=== PATIENT | female | born 1960 | race Caucasian/White ===

== ENCOUNTER → 2017-07-24 | Outpatient (CLI) | payer BC ==
--- NOTE | 2017-07-24 09:22 | US ---
EXAMINATION TYPE: US abdomen complete DATE OF EXAM: 07/24/2017 COMPARISON: CLINICAL HISTORY: K42.9 Umbilical Hernia. Hx of stomach cancer. GB removed in 2002. Bulge seen left lateral to umbilicus. EXAM MEASUREMENTS: Liver Length: 18.9 cm CBD: cm CHD: Spleen: 13.2 cm Right Kidney: 11.5 x 5.4 x 4.5 cm Left Kidney: 12.7 x 4.9 x 6.1 cm Pancreas: Appears echogenic in its visualized portions Liver: Appears enlarged Evidence for sonographic Koch's sign: neg CBD: wnl CHD: wnl Spleen: Appears enlarged Right Kidney: wnl Left Kidney: wnl Upper IVC: Normal as seen Abd Aorta: Distal obscured by overlying bowel gas. No AAA identified. Left lateral to umbilicus bulge scanned. Break in muscle tissue with peristalsing bowel seen = 3.1 cm The liver is poorly penetrated by the ultrasound beam. No ascites. Gallbladder is not visualized. The spleen is borderline enlarged. Cortical medullary differentiation maintained within the kidneys. Med ullary aspect of the kidneys is somewhat hypoechoic greater on the right of questionable etiology. No evident hydronephrosis or cortical mass, no pathologic calcification. IMPRESSION: Technologist reports findings suspicious for anterior abdominal wall hernia. Noncontrast CT could be performed through this region for confirmation. Possible hepatic steatosis or hepatocell ular disease. Limitations to the exam, follow-up renal ultrasound or CT could be performed with contr ast for better evaluation.
== END | disposition home or self-care (01) ==
LOC: RADUSWWP 07:28
PROVIDERS: ATTEND Family Medicine
DX: K42.9 Umbilical hernia without obstruction or gangrene (principal)
CPT/HCPCS: 76700

== ENCOUNTER → 2017-10-31 | Outpatient (CLI) | payer BC ==
--- NOTE | 2017-10-31 16:51 | CT ---
EXAMINATION TYPE: CT abdomen pelvis wo con DATE OF EXAM: 10/31/2017 COMPARISON: NONE HISTORY: 57-year-old female Ventral hernia. CT DLP: 1516.2 mGycm. Automated exposure control for dose reduction was used. TECHNIQUE: Contiguous axial scanning of the abdomen and pelvis without IV contrast. Coronal and sagit tiffani reconstructions performed. FINDINGS: Heart is normal size without pericardial effusion. Lung bases clear without pleural effusion. Postsurgical changes of Tracey-en-Y gastric bypass. Mild reflux of contrast up the hepatobiliary limb i nto the excluded stomach. Indeterminate 4.4 cm lesion peripheral right hepatic lobe. This does not show fluid attenuation. Chol ecystectomy clips are present. Adrenal glands and pancreas show no gross abnormality by noncontrast CT. Borderline enlarged spleen measuring 13.7 cm on coronal series image 16. Lobulated contour of the right kidney. There are 3 nonobstructive calculi in the left kidney, largest measuring 5 mm. This small to moderate-sized umbilical hernia measuring 3.3 cm wide but a larger omental fat-containi ng left periumbilical hernia measuring up to 7.9 cm wide and 8.6 cm craniocaudal. The hernia neck tran sures 2.5 cm wide. There is mild stranding within the hernia sac that could represent mild inflammati on. No mass effect onto the anterior abdominal wall. No dilated small bowel, free fluid, or free air. Bffn-kl-qffedwvj stool in the right hemicolon. No pe ricolonic inflammatory change. Scattered prominent but nonenlarged mesenteric and retroperitoneal lymph nodes measuring up to 7 mm l ikely reactive/post inflammatory. Bladder partially urine distended. Uterus surgically absent. Neither ovary is clearly visualized and could be small or also surgically absent. No pelvic lymphadenopathy seen or abnormal fluid collection the pelvis. Bones: Mild degenerative changes at the hips. Moderate to advanced degenerative disc disease from L2 through L5 levels. No osseous destructive process. IMPRESSION: 1. Small to moderate-sized umbilical hernia measuring 3.3 cm wide. 2. A larger omental fat-containing left periumbilical hernia (7.9 x 8.6 cm) with a 2.5 cm wide herni a neck. Some stranding in the hernia sac suggests mild inflammation. 3. Indeterminate 4.4 cm lesion right liver lobe. Neoplasm not excluded at this time. Complicated cys t is possible. Consider initial evaluation with liver ultrasound. Contrast-enhanced CT or MRI may be indicated if those results are inconclusive. 4. Left-sided nephrolithiasis measuring up to 5 mm.
== END | disposition home or self-care (01) ==
LOC: RADCTMAIN 14:23
PROVIDERS: ATTEND Family Medicine
DX: K42.9 Umbilical hernia without obstruction or gangrene (principal); N20.0 Calculus of kidney
CPT/HCPCS: 74176

== ENCOUNTER → 2018-06-29 | Outpatient (CLI) | payer BC ==
--- NOTE | 2018-06-30 08:17 | MM ---
Reason for exam: screening (asymptomatic). Last mammogram was performed 2 years ago. History: Patient is postmenopausal, has history of other cancer at age 51, and is nulliparous. Family history of breast cancer in paternal grandmother and breast cancer in paternal aunt. Took estrogen for 5 years 9 months. Physical Findings: A clinical breast exam by your physician is recommended on an annual basis and results should be correlated with mammographic findings. MG Screening Mammo w CAD Bilateral CC and MLO view(s) were taken. Prior study comparison: June 18, 2016, bilateral MG screening mammo w CAD. November 12, 2013, CAD bilateral diagnostic mammogram. The breast tissue is heterogeneously dense. This may lower the sensitivity of mammography. No suspicious abnormality. No significant changes when compared with prior studies. ASSESSMENT: Negative, BI-RAD 1 RECOMMENDATION: Routine screening mammogram of both breasts in 1 year.
== END | disposition home or self-care (01) ==
LOC: RADMAMWWP 07:10
PROVIDERS: ATTEND Family Medicine
DX: Z12.31 Encounter for screening mammogram for malignant neoplasm of breast (principal)
CPT/HCPCS: 77067

== ENCOUNTER 2019-02-22 03:40 | Emergency (ER) | payer BC ==
[2019-02-22 03:57] VITALS: TEMP 98.1
--- NOTE | 2019-02-22 04:20 | ED ---
Lower Extremity Injury HPI - General Chief Complaint: Extremity Injury, Lower Stated Complaint: Rt hip pain Time Seen by Provider: 02/22/19 03:57 Source: patient, RN notes reviewed, old records reviewed Mode of arrival: ambulatory Limitations: no limitations - History of Present Illness Initial Comments: This is a 58-year-old female for ER status post fall in pain yesterday. Patient had pain to the night yesterday but unable to sleep tonight. Right hip pain right back pain. No other trauma noted. Patient having worsening pain which she was unable to find a comfortable position, no modifying factors for pain MD Complaint: hip injury -: days(s) Injury: Hip: Right Type of Injury: eversion, hyperextension Place: home Severity: mild Severity scale (1-10): 2 Improves With: nothing Worsens With: weight bearing, movement, palpation Context: fall, direct blow, walking Associated Symptoms: able to partially bear weight, ambulatory - Related Data Home Medications Medication Instructions Recorded Confirmed Aspirin EC [Ecotrin] 81 mg PO HS 03/03/15 11/24/18 Cetirizine HCl [Zyrtec] 10 mg PO DAILY 03/03/15 11/24/18 Cholecalciferol [Vitamin D3] 2,000 unit PO BID 03/03/15 11/24/18 Cyanocobalamin [Vitamin B-12] 1,500 mcg PO DAILY@1200 03/03/15 11/24/18 Flaxseed [Flaxseed Oil] 1,200 mg PO BID 03/03/15 11/24/18 Folic Acid 0.4 mg PO HS 03/03/15 11/24/18 Furosemide [Lasix] 20 mg PO DAILY 03/03/15 11/24/18 Gabapentin [Neurontin] 600 mg PO HS 03/03/15 11/24/18 Levothyroxine Sodium [Synthroid] 75 mcg PO DAILY 03/03/15 11/24/18 Losartan [Cozaar] 25 mg PO HS 03/03/15 11/24/18 Tamsulosin HCl [Flomax] 0.4 mg PO DIRECTED PRN 03/03/15 11/24/18 buPROPion XL [Wellbutrin Xl] 150 mg PO DAILY 03/03/15 11/24/18 metFORMIN HCL [Glucophage] 500 mg PO HS 03/03/15 11/24/18 Cyanocobalamin (Vitamin B-12) 1,500 mcg PO DAILY 12/02/16 11/24/18 [Vitamin B12] Juardiance 25 mg PO DAILY 12/02/16 11/24/18 Potassium Citrate [Urocit-K] 20 meq PO TID 12/02/16 11/24/18 Liraglutide [Victoza 2-Jeb] 0.6 mg SQ DAILY 11/06/18 11/24/18 Allergies Allergy/AdvReac Type Severity Reaction Status Date / Time acetaminophen Allergy Unknown Verified 02/22/19 03:57 [From Darvocet-N 100] bupivacaine HCl Allergy Anaphylaxis Verified 02/22/19 03:57 [From Marcaine] lidocaine Allergy Anaphylaxis Verified 02/22/19 03:57 lisinopril Allergy Unknown Verified 02/22/19 03:57 Penicillins Allergy Anaphylaxis Verified 02/22/19 03:57 propoxyphene napsylate Allergy Unknown Verified 02/22/19 03:57 [From Darvocet-N 100] shellfish derived [Shellfish] AdvReac Anaphylaxis Verified 02/22/19 03:57 topiramate [From Topamax] AdvReac Unknown Verified 02/22/19 03:57 Review of Systems ROS Statement: Those systems with pertinent positive or pertinent negative responses have been documented in the HPI. ROS Other: All systems not noted in ROS Statement are negative. Past Medical History Past Medical History: Blood Disorder, Diabetes Mellitus, Thyroid Disorder Additional Past Medical History / Comment(s): neuropathy. hx. of multiple kidney stones. chronic anemia History of Any Multi-Drug Resistant Organisms: None Reported Past Surgical History: Appendectomy, Bariatric Surgery, Cholecystectomy, Hysterectomy Additional Past Surgical History / Comment(s): Percutaneous Nephro Lithotomy. [place] teeth extraction under general anesthesia, Additional Past Anesthesia/Blood Transfusion Reaction / Comment(s): SHE STATES SHE "CODED" DURING ORAL SURGERY BECAUSE OF AN ANESTHETIC. Past Psychological History: Depression Smoking Status: Never smoker Past Alcohol Use History: Rare Past Drug Use History: None Reported - Past Family History Father Family Medical History: AICD/Pacemaker Mother Family Medical History: Congestive Heart Failure (CHF) Brother(s) Family Medical History: AICD/Pacemaker General Exam Limitations: no limitations General appearance: alert, in no apparent distress Head exam: Present: atraumatic, normocephalic, normal inspection Eye exam: Present: normal appearance, PERRL, EOMI. Absent: scleral icterus, conjunctival injection, periorbital swelling ENT exam: Present: normal exam, mucous membranes moist Neck exam: Present: normal inspection. Absent: tenderness, meningismus, lymphadenopathy Respiratory exam: Present: normal lung sounds bilaterally. Absent: respiratory distress, wheezes, rales, rhonchi, stridor Cardiovascular Exam: Present: regular rate, normal rhythm, normal heart sounds. Absent: systolic murmur, diastolic murmur, rubs, gallop, clicks GI/Abdominal exam: Present: soft, normal bowel sounds. Absent: distended, tenderness, guarding, rebound, rigid Extremities exam: Present: normal inspection, full ROM, normal capillary refill. Absent: tenderness, pedal edema, joint swelling, calf tenderness Back exam: Present: normal inspection Neurological exam: Present: alert, oriented X3, CN II-XII intact Psychiatric exam: Present: normal affect, normal mood Skin exam: Present: warm, dry, intact, normal color. Absent: rash Course Vital Signs 02/22/19 02/22/19 03:53 05:51 Temperature 98.1 F Pulse Rate 74 70 Respiratory 16 17 Rate Blood Pressure 144/88 136/91 O2 Sat by Pulse 96 96 Oximetry Medical Decision Making - Medical Decision Making 88 female the ER no traumatic injury noted. Patient given pain medication, family ambulate now comfortable and can be discharged home - Radiology Data Radiology results: report reviewed (X-ray sacrum right hip negative for traumatic injury), image reviewed Disposition Clinical Impression: Right hip pain, Lumbar strain, Fall Disposition: HOME SELF-CARE Condition: Good Instructions (If sedation given, give patient instructions): Hip Pain (ED) Is patient prescribed a controlled substance at d/c from ED?: No Referrals: Gideon Mendez MD [Primary Care Provider] - 1-2 days
--- NOTE | 2019-02-22 04:46 | XR ---
EXAM: XR Pelvis Complete, 3 or More Views CLINICAL HISTORY: ITS.REASON XR Reason: Pain TECHNIQUE: Frontal and lateral or oblique views of the pelvis. COMPARISON: No relevant prior studies available. FINDINGS: Bones/joints: No acute fracture. No dislocation. Soft tissues: Unremarkable. IMPRESSION: No acute findings.
--- NOTE | 2019-02-22 04:46 | XR ---
EXAM: XR Lumbar Spine, 2 or 3 Views CLINICAL HISTORY: ITS.REASON XR Reason: Pain TECHNIQUE: Frontal and lateral views of the lumbar spine. COMPARISON: No relevant prior studies available. IMPRESSION: No acute fracture. Grade 1 anterolisthesis of L3 on L4, L4 on L5. Mild degenerative changes and disc height loss. Mild dextroscoliosis.
[2019-02-22] MEDS ORDERED: KETOROLAC 60 MG/2 ML VIAL IM STA (05:34)
[2019-02-22] MEDS ORDERED: traMADol 50 MG STARTER PACK 3 TAB BTL PO STA (05:34)
[2019-02-22 05:54] VITALS: BP 136/91; PULSE 70; RESP 17
== END 2019-02-22 05:51 | disposition home or self-care (01) ==
LOC: EC 03:40
DX: M25.551 Pain in right hip (principal); S39.012A Strain of muscle, fascia and tendon of lower back, initial encounter; E11.40 Type 2 diabetes mellitus with diabetic neuropathy, unspecified; E07.9 Disorder of thyroid, unspecified; Z79.82 Long term (current) use of aspirin; Z79.890 Hormone replacement therapy; Z79.84 Long term (current) use of oral hypoglycemic drugs; Z79.899 Other long term (current) drug therapy; Z88.0 Allergy status to penicillin; Z88.5 Allergy status to narcotic agent; Z88.6 Allergy status to analgesic agent; Z88.4 Allergy status to anesthetic agent; Z88.8 Allergy status to other drugs, medicaments and biological substances; Z91.013 Allergy to seafood; Z98.84 Bariatric surgery status
CPT/HCPCS: 72100; 73502; 99284; 96372; J1885

== ENCOUNTER → 2019-07-06 | Outpatient (CLI) | payer BC ==
--- NOTE | 2019-07-08 09:57 | MM ---
Reason for exam: screening (asymptomatic). Last mammogram was performed 1 year ago. History: Patient is postmenopausal, has history of other cancer at age 51, and is nulliparous. Family history of breast cancer in paternal grandmother, breast cancer in maternal aunt, and breast cancer in paternal aunt. Took estrogen for 5 years 9 months. Physical Findings: A clinical breast exam by your physician is recommended on an annual basis and results should be correlated with mammographic findings. MG Screening Mammo w CAD Bilateral CC and MLO view(s) were taken. Prior study comparison: June 29, 2018, bilateral MG screening mammo w CAD. June 18, 2016, bilateral MG screening mammo w CAD. The breast tissue is heterogeneously dense. This may lower the sensitivity of mammography. No suspicious abnormality. ASSESSMENT: Negative, BI-RAD 1 RECOMMENDATION: Routine screening mammogram of both breasts in 1 year.
== END | disposition home or self-care (01) ==
LOC: RADMAMWWP 07:35
PROVIDERS: ATTEND Family Medicine
DX: Z12.39 Encounter for other screening for malignant neoplasm of breast (principal)
CPT/HCPCS: 77067

== ENCOUNTER 2020-07-13 15:20 | Emergency (ER) | payer BC ==
[2020-07-13 15:34] VITALS: RESP 18; TEMP 98.4
--- NOTE | 2020-07-13 15:51 | ED ---
Fall HPI - General Chief Complaint: Fall Stated Complaint: Fall, R Leg Pain Time Seen by Provider: 07/13/20 15:35 Source: patient Mode of arrival: wheelchair - History of Present Illness Initial Comments: Patient is a 60-year-old female past medical history of diabetes who presents emergency Department with reported right foot pain. Patient states that she was walking on the sidewalk when she did not see an elevated in the concrete. She accidentally tripped over the concrete and fell forward onto her hands at approximately 8 am. She was able to get up and ambulate however the course of the day the patient has had increasing pain in the right mid foot. Pain is worse with ambulation and better with rest. He took some Excedrin around 9 AM. Admits to swelling in the extremity. No knee or hip pain. Denies any pain in her upper extremities. No chest pain or shortness of breath. States she did not hit her head. Patient is not on any blood thinners. Reports difficulty with dorsiflexion. Denies numbness or tingling in the extremity. No other alleviating, spray applicator modifying factors - Related Data Home Medications Medication Instructions Recorded Confirmed Aspirin EC [Ecotrin] 81 mg PO HS 03/03/15 07/13/20 Cholecalciferol [Vitamin D3] 5,000 unit PO DAILY 03/03/15 07/13/20 Flaxseed [Flaxseed Oil] 1,200 mg PO HS 03/03/15 07/13/20 Folic Acid 0.4 mg PO HS 03/03/15 07/13/20 Furosemide [Lasix] 20 mg PO DAILY 03/03/15 07/13/20 Gabapentin [Neurontin] 300 mg PO HS 03/03/15 07/13/20 Levothyroxine Sodium [Synthroid] 75 mcg PO DAILY 03/03/15 07/13/20 Losartan [Cozaar] 25 mg PO DAILY 03/03/15 07/13/20 Tamsulosin HCl [Flomax] 0.4 mg PO DIRECTED PRN 03/03/15 07/13/20 buPROPion XL [Wellbutrin Xl] 150 mg PO DAILY 03/03/15 07/13/20 metFORMIN HCL [Glucophage] 500 mg PO HS 03/03/15 07/13/20 Cyanocobalamin (Vitamin B-12) 1,500 mcg PO DAILY 12/02/16 07/13/20 [Vitamin B12] [id number] 1 tab PO ONETIME PRN 07/13/20 07/13/20 [Excedrin] Potassium Citrate [Urocit-K] 20 meq PO BID 07/13/20 07/13/20 Allergies Allergy/AdvReac Type Severity Reaction Status Date / Time acetaminophen Allergy Unknown Verified 07/13/20 17:28 [From Darvocet-N 100] bupivacaine HCl Allergy Anaphylaxis Verified 07/13/20 17:28 [From Marcaine] lidocaine Allergy Anaphylaxis Verified 07/13/20 17:28 lisinopril Allergy Unknown Verified 07/13/20 17:28 Penicillins Allergy Anaphylaxis Verified 07/13/20 17:28 propoxyphene napsylate Allergy Unknown Verified 07/13/20 17:28 [From Darvocet-N 100] shellfish derived [Shellfish] AdvReac Anaphylaxis Verified 07/13/20 17:28 topiramate [From Topamax] AdvReac Unknown Verified 07/13/20 17:28 Review of Systems ROS Statement: Those systems with pertinent positive or pertinent negative responses have been documented in the HPI. ROS Other: All systems not noted in ROS Statement are negative. Past Medical History Past Medical History: Blood Disorder, Diabetes Mellitus, Thyroid Disorder Additional Past Medical History / Comment(s): neuropathy. hx. of multiple kidney stones. chronic anemia History of Any Multi-Drug Resistant Organisms: None Reported Past Surgical History: Appendectomy, Bariatric Surgery, Cholecystectomy, Hysterectomy Additional Past Surgical History / Comment(s): Percutaneous Nephro Lithotomy. [place] teeth extraction under general anesthesia, Additional Past Anesthesia/Blood Transfusion Reaction / Comment(s): SHE STATES SHE "CODED" DURING ORAL SURGERY BECAUSE OF AN ANESTHETIC. Past Psychological History: Depression Smoking Status: Never smoker Past Alcohol Use History: Rare Past Drug Use History: None Reported - Past Family History Father Family Medical History: AICD/Pacemaker Mother Family Medical History: Congestive Heart Failure (CHF) Brother(s) Family Medical History: AICD/Pacemaker General Exam Limitations: no limitations General appearance: alert, in no apparent distress Extremities exam: Present: other (tenderness dorsal aspect right foot with associated swelling. NO ecchymosis on dorsal or plantar aspect. 2+ DP and PT pulses. Intact sensation over the medial, lateral and dorsal b/l le. Intact hip flexion, knee extension, ankle and great toe dorsiflexion and foot plantarflexion) Neurological exam: Present: alert, oriented X3, CN II-XII intact Skin exam: Present: warm, dry, intact, normal color. Absent: rash Course Vital Signs 07/13/20 07/13/20 15:32 16:34 Temperature 98.4 F Pulse Rate 93 82 Respiratory 18 18 Rate Blood Pressure 155/97 144/93 O2 Sat by Pulse 99 100 Oximetry Medical Decision Making - Medical Decision Making Upon arrival the patient was placed in room 25. A thorough history and physical exam is performed. Pain medications were offered however the patient refused. X-rays were obtained of the patient's right foot and ankle. Right foot x-ray demonstrates a nondisplaced second proximal metatarsal fracture. This information is relayed to the patient as well as concerns for lisfranc injury. Compartments are soft at this time. Patient is placed in a posterior splint and stirrup splint. She is instructed to not weight bear. Follow up with the orthopedic doctor in 2-4 days. Patient is given a written prescription for a knee walker. Rest, ice and elevate the extremity. Return to the emergency room for any new or worsening symptoms. Patient did agree to this. Given written and verbal discharge instructions and discharged home in stable condition Disposition Clinical Impression: Fall, Fracture of second metatarsal bone Disposition: HOME SELF-CARE Condition: Stable Instructions (If sedation given, give patient instructions): Foot Fracture in Adults (ED), Fall Prevention (ED) Additional Instructions: Do not weight bear on the right foot until you see the commercial specialist. Rest, ice and elevate the extremity. Follow-up with orthopedic doctor as soon as possible. Return to the emergency room for any new or worsening symptoms Is patient prescribed a controlled substance at d/c from ED?: No Referrals: Gideon Mendez MD [Primary Care Provider] - 1-2 days Jori Peña MD [STAFF PHYSICIAN] - 1-2 days Time of Disposition: 17:40
--- NOTE | 2020-07-13 16:33 | XR ---
EXAMINATION TYPE: XR ankle complete RT DATE OF EXAM: 07/13/2020 COMPARISON: None HISTORY: Fall, pain TECHNIQUE: Three-view right ankle FINDINGS: Diffuse soft tissue swelling is present. Ankle mortise is intact. No acute fractures or dis locations are evident. Plantar calcaneal heel spur is present. Follow-up exams can be performed 7-10 days from acute trauma for continued pain. IMPRESSION: 1. Diffuse soft tissue swelling.
--- NOTE | 2020-07-13 16:34 | XR ---
EXAMINATION TYPE: XR foot complete RT DATE OF EXAM: 07/13/2020 COMPARISON: None HISTORY: Pain, fall TECHNIQUE: 3 views right foot FINDINGS: Plantar calcaneal heel spur is present. No dislocations are evident.. Varus deformity of th e fourth and fifth digits are present. Hallux valgus deformity is present. Her graft there is a very subtle nondisplaced transverse fracture proximal second metatarsal. Correlate for Lisfranc fracture. IMPRESSION: 1. Subtle nondisplaced second proximal metatarsal fracture
[2020-07-13 16:55] VITALS: BP 144/93; PULSE 82
== END 2020-07-13 17:49 | disposition home or self-care (01) ==
LOC: EC 15:20
DX: S92.324A Nondisplaced fracture of second metatarsal bone, right foot, initial encounter for closed fracture (principal); E11.40 Type 2 diabetes mellitus with diabetic neuropathy, unspecified; E07.9 Disorder of thyroid, unspecified; F32.9 Major depressive disorder, single episode, unspecified; Z79.84 Long term (current) use of oral hypoglycemic drugs; Z79.890 Hormone replacement therapy; Z79.899 Other long term (current) drug therapy; Z79.82 Long term (current) use of aspirin; Z88.6 Allergy status to analgesic agent; Z88.4 Allergy status to anesthetic agent; Z88.0 Allergy status to penicillin; Z88.8 Allergy status to other drugs, medicaments and biological substances; Z91.013 Allergy to seafood; Z98.84 Bariatric surgery status; W01.0XXA Fall on same level from slipping, tripping and stumbling without subsequent striking against object, initial encounter; Y93.01 Activity, walking, marching and hiking; Y92.480 Sidewalk as the place of occurrence of the external cause
CPT/HCPCS: 29515; 99283

== ENCOUNTER → 2020-07-14 | Outpatient (CLI) | payer BC ==
--- NOTE | 2020-07-14 12:44 | CT ---
EXAMINATION TYPE: CT foot RT wo con DATE OF EXAM: 07/14/2020 COMPARISON: Plain film radiograph 07/13/2020 HISTORY: Slip and fall yesterday, right 2nd metatarsal pain. CT DLP: 272.8 mGycm Automated exposure control for dose reduction was used. Unenhanced CT of the right foot was performed with bone and soft tissue window settings submitted. Three-dimensional imaging was also obtained at a separate workstation. FINDINGS: Virtually nondisplaced fractures involving the base of the second and third metatarsals. There is no evidence for intra-articular extension. There is no evidence for widening of the first and second int ermetatarsal joint spaces. No Lisfranc dislocation identified at this time. Mild soft tissue swelling noted. No additional fractures seen. IMPRESSION: Virtually nondisplaced fractures involving the base of the second and third metatarsals.
== END | disposition home or self-care (01) ==
LOC: RADCTMAIN 12:00
PROVIDERS: ATTEND Orthopaedic Surgery
DX: S92.324A Nondisplaced fracture of second metatarsal bone, right foot, initial encounter for closed fracture (principal)

== ENCOUNTER → 2022-11-22 | Outpatient (CLI) | payer BC ==
--- NOTE | 2022-11-25 09:12 | MM ---
Reason for Exam: Screening (asymptomatic). Last mammogram was performed 3 year(s) and 4 month(s) ago. Patient History: Menarche at age 12. Patient has no children. Left ovary removed at age 39. Right ovary removed at age 39. Hysterectomy at age 39. Postmenopausal. Other cancer, age 51. Estrogen for 5 years, 9 months. Paternal grandmother had breast cancer. Paternal aunt had breast cancer. Maternal aunt had breast cancer. Risk Values: Kiana 5 year model risk: 1.8%. NCI Lifetime model risk: 8.9%. Prior Study Comparison: 06/18/2016 Bilateral Screening Mammogram, [facility]. 06/29/2018 Bilateral Screening Mammogram, [facility]. 07/06/2019 Bilateral Screening Mammogram, [facility]. Tissue Density: The breast tissue is heterogeneously dense. This may lower the sensitivity of mammography. Findings: Analyzed By CAD. There is no suspicious group of microcalcifications or new suspicious mass in either breast. Stable chronic nodularity within the left breast. Stable asymmetric breast tissue within the upper outer quadrant of the right breast. Overall Assessment: Benign, BI-RAD 2 Management: Screening Mammogram of both breasts in 1 year. A clinical breast exam by your physician is recommended on an annual basis and results should be correlated with mammographic findings. Electronically signed and approved by: Pillo Laws D.O.
== END | disposition home or self-care (01) ==
LOC: RADMAMWWP 12:47
PROVIDERS: ATTEND Family Medicine
DX: Z12.31 Encounter for screening mammogram for malignant neoplasm of breast (principal); Z78.0 Asymptomatic menopausal state; Z80.3 Family history of malignant neoplasm of breast
CPT/HCPCS: 77063; 77067

== ENCOUNTER → 2022-11-22 | Outpatient (CLI) | payer BC ==
--- NOTE | 2022-11-22 14:43 | US ---
EXAMINATION TYPE: US kidneys/renal and bladder DATE OF EXAM: 11/22/2022 COMPARISON: Ultrasound abdomen July 24, [address] abdomen and pelvis 2018 CLINICAL INDICATION: Female, 62 years old with history of N17.9 ACUTE KIDNEY FAILURE, UNSPECIFIED; h/ o renal stones on the left for years EXAM MEASUREMENTS: Right Kidney: 11.5 x 5.7 x 5.0 cm Left Kidney: 12.7 x 6.4 x 6.4 cm Right Kidney: No hydronephrosis or masses seen Left Kidney: severe hydronephrosis seen, inferior calyceal stone = 2.1 x 2.0cm Bladder: wnl Bilateral Jets seen: only the right No right-sided hydronephrosis. The urinary bladder is adequately distended. Distal right ureter jet is seen. New moderate to severe left-sided hydronephrosis. IMPRESSION: New ptrunuuw-me-tocwpl left-sided hydronephrosis. Consider obstructing ureter calculus as distal ureter jet not seen. Urology referral advised.
== END | disposition home or self-care (01) ==
LOC: RADUSWWP 12:50
PROVIDERS: ATTEND Family Medicine
DX: N13.2 Hydronephrosis with renal and ureteral calculous obstruction (principal); N17.9 Acute kidney failure, unspecified
CPT/HCPCS: 76770

== ENCOUNTER → 2022-11-29 | Outpatient (CLI) | payer BC ==
--- NOTE | 2022-11-29 11:37 | XR ---
EXAMINATION TYPE: XR KUB DATE OF EXAM: 11/29/2022 HISTORY: Renal calculi Comparison: CT abdomen and pelvis 10/31/2009, renal ultrasound 11/22/2022 Technique: 2 KUB images submitted for interpretation. Findings: Dextro sclerotic curvature of the lumbar spine. No acute osseous adenopathy. Cholecystectomy clips ri ght upper quadrant. Right mid kidney 1 cm calcification noted. Left lower pole 1.4 cm calculus with a dditional 2.4 cm calculus in the region of the left renal pelvis/proximal ureter. Nonobstructive bowel gas pattern. IMPRESSION: Bilateral renal calculi with a 2.4 cm calculus in the region of the left renal pelvis/proximal ureter . Further evaluation with CT abdomen and pelvis is recommended.
== END | disposition home or self-care (01) ==
LOC: LABWHC1 10:19
PROVIDERS: ATTEND Urology
DX: N20.2 Calculus of kidney with calculus of ureter (principal)
CPT/HCPCS: 74018

== ENCOUNTER → 2022-12-27 | Outpatient (CLI) | payer BC ==
--- NOTE | 2022-12-27 09:04 | CT ---
EXAMINATION TYPE: CT abdomen pelvis wo con DATE OF EXAM: 12/27/2022 COMPARISON: 10/31/2017 HISTORY: Kidney stone with stent CT DLP: 1731.70 mGycm Examination of the solid and hollow viscera is limited given the lack of contrast. FINDINGS: LUNG BASES: No evidence for nodule. No evidence for infiltrate. LIVER/GB: The gallbladder is surgically absent. Stable hypoattenuating masslike area anterior segment right hepatic lobe at its periphery measuring 4.3 cm versus 4.3 cm which is nonspecific. PANCREAS: No pancreatic mass identified. No inflammatory process seen. SPLEEN: No evidence for splenomegaly. No intrasplenic lesions seen. ADRENALS: No adrenal nodules identified. No evidence for thickening. KIDNEYS: Left ureteral stent is noted to be in place with proximal pigtail component within the left renal pelvis and distal pigtail component within the urinary bladder. At the level of the left renal pelvis there is a 1.7 cm calculus. There is an additional 1.2 cm calculus lower pole left kidney. The re is mild fullness of the left renal collecting system. No definite calculi are seen along the cours e of the ureteral stent at this time. The left kidney is slightly diminutive in size relative to its right-sided counterpart. The right kidney demonstrates 4 mm calculus in its lower pole. Mild fullness right renal pelvis could reflect extrarenal pelvis versus a degree of UPJ obstruction likely acquire d congenital. BOWEL: Partial gastrectomy changes. Appendix has a normal appearance. No evidence of bowel obstructio n. No inflammatory process. Progression of the low anterior abdominal wall hernia which contains efe ral loops of bowel. No definite evidence for incarceration. Lymph nodes: No evidence for adenopathy greater than 1 cm. Abdominal aorta: Atheromatous changes seen. No evidence for aneurysm. Genital organs: No significant abnormality. Other: No significant abnormality. IMPRESSION: 1. Left ureteral stent as discussed. Calculus at the level of the left renal pelvis and lower pole le ft kidney. See above. 2. Right-sided nephrolithiasis with mild fullness of the right renal collecting system as noted above . 3. Nonspecific hypoattenuating masslike area right hepatic lobe. Overall appearance is stable relativ e to the prior study. Favor benign etiology.
== END | disposition home or self-care (01) ==
LOC: RADCTMAIN 08:27
PROVIDERS: ATTEND Urology
DX: N20.0 Calculus of kidney (principal); K76.89 Other specified diseases of liver; Z46.6 Encounter for fitting and adjustment of urinary device
CPT/HCPCS: 74176

== ENCOUNTER 2023-01-14 09:01 | Emergency (ER) | payer BC ==
[2023-01-14 09:21] VITALS: RESP 18; TEMP 98.6
--- NOTE | 2023-01-14 09:44 | ED ---
General Adult HPI - General Chief complaint: Neuro Symptoms/Deficit Stated complaint: Recheck Time Seen by Provider: 01/14/23 09:22 Source: patient, RN notes reviewed, old records reviewed Mode of arrival: ambulatory Limitations: no limitations - History of Present Illness Initial comments: 62-year-old female presents for evaluation of a sided facial droop. Patient initially noticed that her lip was numb and slightly croupy yesterday at dinner time. 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 She states that these progressed over the past 12 hours to complete right-sided facial weakness. She is unable to close her eye. She is unable to lift her eyebrow. Denies ear pain. She states was seen by the primary care physician and sent to the emergency department for evaluation. She has no limb weakness or numbness. No speech difficulty. - Related Data Home Medications Medication Instructions Recorded Confirmed Aspirin EC [Ecotrin] 81 mg PO HS 03/03/15 09/06/22 Cholecalciferol [Vitamin D3] 5,000 unit PO DAILY 03/03/15 09/06/22 Flaxseed [Flaxseed Oil] 1,200 mg PO HS 03/03/15 09/06/22 Folic Acid 0.4 mg PO HS 03/03/15 09/06/22 Furosemide [Lasix] 20 mg PO DAILY 03/03/15 09/06/22 Gabapentin [Neurontin] 300 mg PO HS 03/03/15 09/06/22 Levothyroxine Sodium [Synthroid] 75 mcg PO DAILY 03/03/15 09/06/22 Losartan [Cozaar] 25 mg PO DAILY 03/03/15 09/06/22 Tamsulosin HCl [Flomax] 0.4 mg PO DIRECTED PRN 03/03/15 09/06/22 buPROPion XL [Wellbutrin Xl] 150 mg PO DAILY 03/03/15 09/06/22 metFORMIN HCL [Glucophage] 500 mg PO HS 03/03/15 09/06/22 Cyanocobalamin (Vitamin B-12) 1,500 mcg PO DAILY 12/02/16 09/06/22 [Vitamin B12] Kosdepp-Kcrl-Eswp [id number] 1 tab PO ONETIME PRN 07/13/20 09/06/22 [Excedrin] Potassium Citrate [Urocit-K] 20 meq PO BID 07/13/20 09/06/22 Previous Rx's Medication Instructions Recorded predniSONE [Deltasone] 60 mg PO DAILY 7 Days #21 tab 01/14/23 valACYclovir HCL [Valacyclovir] 1,000 mg PO TID #21 tab 01/14/23 Allergies Allergy/AdvReac Type Severity Reaction Status Date / Time acetaminophen Allergy Unknown Verified 01/14/23 09:21 [From Darvocet-N 100] bupivacaine HCl Allergy Anaphylaxis Verified 01/14/23 09:21 [From Marcaine] lidocaine Allergy Anaphylaxis Verified 01/14/23 09:21 lisinopril Allergy Unknown Verified 01/14/23 09:21 Penicillins Allergy Anaphylaxis Verified 01/14/23 09:21 propoxyphene napsylate Allergy Unknown Verified 01/14/23 09:21 [From Darvocet-N 100] shellfish derived [Shellfish] AdvReac Anaphylaxis Verified 01/14/23 09:21 topiramate [From Topamax] AdvReac Unknown Verified 01/14/23 09:21 Review of Systems ROS Statement: Those systems with pertinent positive or pertinent negative responses have been documented in the HPI. ROS Other: All systems not noted in ROS Statement are negative. Past Medical History Past Medical History: Blood Disorder, Diabetes Mellitus, Thyroid Disorder Additional Past Medical History / Comment(s): neuropathy. hx. of multiple kidney stones. chronic anemia History of Any Multi-Drug Resistant Organisms: None Reported Past Surgical History: Appendectomy, Bariatric Surgery, Cholecystectomy, Hysterectomy Additional Past Surgical History / Comment(s): Percutaneous Nephro Lithotomy. [place] teeth extraction under general anesthesia, ureter stent placement Additional Past Anesthesia/Blood Transfusion Reaction / Comment(s): SHE STATES SHE "CODED" DURING ORAL SURGERY BECAUSE OF AN ANESTHETIC. Past Psychological History: Depression Smoking Status: Never smoker Past Alcohol Use History: None Reported Past Drug Use History: None Reported - Past Family History Father Family Medical History: AICD/Pacemaker Mother Family Medical History: Congestive Heart Failure (CHF) Brother(s) Family Medical History: AICD/Pacemaker General Exam Limitations: no limitations General appearance: alert, in no apparent distress Head exam: Present: atraumatic, normocephalic Eye exam: Present: other (Unable to close the eye) Neck exam: Present: normal inspection Respiratory exam: Present: normal lung sounds bilaterally. Absent: respiratory distress, wheezes Cardiovascular Exam: Present: regular rate, normal rhythm GI/Abdominal exam: Present: soft. Absent: distended Extremities exam: Present: normal inspection, normal capillary refill Neurological exam: Present: alert, oriented X3. Absent: CN II-XII intact (Complete right-sided facial paralysis, unable to raise the eyebrow. No other focal findings on exam) Psychiatric exam: Present: normal affect, normal mood Course Vital Signs 01/14/23 01/14/23 09:16 10:15 Temperature 98.6 F Pulse Rate 68 76 Respiratory 18 18 Rate Blood Pressure 147/93 144/93 O2 Sat by Pulse 97 98 Oximetry Medical Decision Making - Medical Decision Making Was pt. sent in by a medical professional or institution (KRIS Navarro, GEOSPATIAL IMAGE ANALYST, urgent care, hospital, or senior living...) When possible be specific @ -No Did you speak to anyone other than the patient for history (EMS, parent, family, police, friend...)? What history was obtained from this source @ -No Did you review nursing and triage notes (agree or disagree)? Why? @ -I reviewed and agree with nursing and triage notes Were old charts reviewed (outside hosp., previous admission, EMS record, old EKG, old radiological studies, urgent care reports/EKG's, senior living records)? Report findings @ -No old charts were reviewed Differential Diagnosis (chest pain, altered mental status, abdominal pain women, abdominal pain men, vaginal bleeding, weakness, fever, dyspnea, syncope, headache, dizziness, GI bleed, back pain, seizure, CVA, palpatations, mental health, musculoskeletal)? @ -Differential CVA Mcginnis's palsy, Ischemic stroke, hemorrhagic stroke, brain tumor, atypical migraine, Wernicke's encephalopathy, seizure, multiple sclerosis, meningitis, encephalitis, hypoglycemia, Guillain-Fournier, electrolytes disturbance, myasthenia gravis.... This is not meant to be an all-inclusive list EKG interpreted by me (3pts min.). @ -As above X-rays interpreted by me (1pt min.). @ -KUB showing left ureteral stent CT interpreted by me (1pt min.). @ -None done U/S interpreted by me (1pt. min.). @ -None done What testing was considered but not performed or refused? (CT, X-rays, U/S, labs)? Why? @ -None What meds were considered but not given or refused? Why? @ -None Did you discuss the management of the patient with other professionals (professionals i.e. , PA, GEOSPATIAL IMAGE ANALYST, lab, RT, psych nurse, social services, rag inspector, teacher, chief revenue officer, manager case)? Give summary @ -No Was smoking cessation discussed for >3mins.? @ -No Was critical care preformed (if so, how long)? @ -No Were there social determinants of health that impacted care today? How? (Homelessness, low income, unemployed, alcoholism, drug addiction, transportation, low edu. Level, literacy, decrease access to med. care, [place] [facility], rehab)? @ -No Was there de-escalation of care discussed even if they declined (Discuss DNR or withdrawal of care, Hospice)? DNR status @ -No What co-morbidities impacted this encounter? (DM, HTN, Smoking, COPD, CAD, Cancer, CVA, ARF, Chemo, Hep., AIDS, mental health diagnosis, sleep apnea, morbid obesity)? @ -[Hypertension diabetes, prior Mcginnis's palsy. Was patient admitted / discharged? Hospital course, mention meds given and route, prescriptions, significant lab abnormalities, going to OR and other pertinent info. @ -[62-year-old female presenting with right-sided facial weakness. Exam consistent with Mcginnis's palsy. There is no forehead sparing. No other focal weakness on exam. Patient states she was scheduled for KUB x-ray for ureteral stent and asked that this be performed while she is in the emergency department. This will be followed up with her urologist. Patient will be started on prednisone and valacyclovir. She will apply eyedrops and ocular lubricant and tape the eye shut. She will follow-up with ophthalmology. Undiagnosed new problem with uncertain prognosis? @ -No Drug Therapy requiring intensive monitoring for toxicity (Heparin, Nitro, Insulin, Cardizem)? @ -No Were any procedures done? @ -No Diagnosis/symptom? @ -[Mcginnis's palsy Acute, or Chronic, or Acute on Chronic? @ -[Acute Uncomplicated (without systemic symptoms) or Complicated (systemic symptoms)? @ -default Side effects of treatment? @ -No Exacerbation, Progression, or Severe Exacerbation? @ -No Poses a threat to life or bodily function? How? (Chest pain, [place], [place], pneumonia, PE, COPD, DKA, ARF, appy, cholecystitis, CVA, Diverticulitis, Homicidal, Suicidal, threat to staff... and all critical care pts) @ -No Disposition Clinical Impression: Mcginnis's palsy Disposition: HOME SELF-CARE Condition: Good Instructions (If sedation given, give patient instructions): Mcginnis Palsy (ED) Additional Instructions: Please apply lubricating eye ointment at night and tape for eyelid shut. Please follow up with ophthalmology. Prescriptions: predniSONE [Deltasone] 60 mg PO DAILY 7 Days #21 tab valACYclovir HCL [Valacyclovir] 1,000 mg PO TID #21 tab Is patient prescribed a controlled substance at d/c from ED?: No Referrals: Gideon Mendez MD [Primary Care Provider] - 1-2 days Rowan Stern MD [STAFF PHYSICIAN] - 1-2 days Time of Disposition: 09:45
[2023-01-14 10:19] VITALS: BP 144/93; PULSE 76
--- NOTE | 2023-01-14 10:32 | XR ---
EXAMINATION TYPE: XR KUB DATE OF EXAM: 01/14/2023 Comparison: 11/29/2022 Clinical History: 62-year-old female Ureteral stent Findings: Reverses shaped scoliotic curvature. Left-sided ureteral stent is present. Large 2.0 cm calcification along the proximal third stent. 1.4 cm calcification likely at the lower pole left kidney. Overall u nchanged from 11/29/2022. Surgical material in the left side of the abdomen. Cholecystectomy clips. Mil d to moderate stool burden. Nonobstructive bowel gas pattern. Impression: Left-sided ureteral stent. A 2 cm stone along the proximal third stent is unchanged. Also unchanged 1 .4 cm calculus likely lower pole left kidney.
== END 2023-01-14 10:19 | disposition home or self-care (01) ==
LOC: EC 09:01
DX: G51.0 Bell's palsy (principal); E11.9 Type 2 diabetes mellitus without complications; E07.9 Disorder of thyroid, unspecified; F32.A Depression, unspecified; Z79.84 Long term (current) use of oral hypoglycemic drugs; Z79.890 Hormone replacement therapy; Z88.6 Allergy status to analgesic agent; Z88.0 Allergy status to penicillin; Z91.013 Allergy to seafood; Z88.8 Allergy status to other drugs, medicaments and biological substances; Z79.82 Long term (current) use of aspirin; Z79.899 Other long term (current) drug therapy
CPT/HCPCS: 74018; 99284

== ENCOUNTER → 2023-01-22 | Outpatient (CLI) | payer BC ==
[2023-01-22 21:39] LABS: Appearance,Urine Turbid (Clear); Bacteria,Urine 1+ (None Seen); Bilirubin,Urine Small (Negative); Blood,Urine Large (Negative); Calcium Oxalate Crystals,Urine Present (None Seen); Color,Urine Dark Yellow (Yellow); Ketones,Urine Trace (Negative); Nitrite,Urine Negative (Negative); Specific Gravity,Urine 1.022 (1.001-1.030)
[2023-01-23 02:04] LABS: ALT 21 U/L (8-44); AST 22 U/L (13-35); Albumin 4.5 d/dL (3.8-4.9); Albumin/Globulin Ratio 1.96 Ratio (1.60-3.17); Alkaline Phosphatase 100 U/L (41-126); BUN/Creat Ratio 12.69 Ratio (12.00-20.00); Blood Urea Nitrogen 20.3 mg/dL (9.0-27.0); Calcium 9.7 mg/dL (8.7-10.3); Chloride 104 mmol/L (96-109); Globulin 2.3 d/dL (1.6-3.3); Glucose 72 mg/dL (70-110); Potassium 4.2 mmol/L (3.5-5.5); Sodium 143 mmol/L (135-145); Total Bilirubin 0.4 mg/dL (0.3-1.2); Total Protein 6.8 d/dL (6.2-8.2)
[2023-01-23 02:08] LABS: Basophils # (A) 0.03 X 10*3/uL (0.00-0.10); Basophils % (A) 0.3 %; Eosinophils # (A) 0.11 X 10*3/uL (0.04-0.35); Eosinophils % (A) 1.2 %; HCT 40.2 % (37.2-46.3); HGB 11.3 d/dL (12.0-15.0); Lymphocytes # (A) 2.19 X 10*3/uL (0.90-5.00); Lymphocytes % (A) 24.1 %; MCH 23.3 pg (27.0-32.0); MCHC 28.1 d/dL (32.0-37.0); MCV 83.1 FL (80.0-97.0); Mean Platelet Volume 12.2 FL (9.5-12.2); Monocytes # (A) 0.68 X 10*3/uL (0.20-1.00); Monocytes % (A) 7.5 %; NRBC Per 100 WBC 0 X 10*3/uL (0.00-0.01); Neutrophils # (A) 6.03 X 10*3/uL (1.80-7.70); Neutrophils % (A) 66.6 %; Platelet Count 409 X 10*3/uL (140-440); RBC 4.84 X 10*6/uL (4.10-5.20); RDW 15.9 % (11.5-14.5); WBC 9.07 X 10*3/uL (4.50-10.00)
== END | disposition home or self-care (01) ==
LOC: LABPAT 14:14
PROVIDERS: ATTEND Urology
DX: Z01.812 Encounter for preprocedural laboratory examination (principal); E11.9 Type 2 diabetes mellitus without complications; R31.29 Other microscopic hematuria; N20.0 Calculus of kidney
CPT/HCPCS: 80053; 81001; 85025; 87086

== ENCOUNTER 2023-01-29 06:52 | Day surgery (SDC) | payer BC ==
--- NOTE | 2023-01-28 16:21 | P.GSHP ---
History of Present Illness H&P Date: 01/28/23 62 yo femal e with a history of stones. SHe had a large left upj stone and a moderate size llp stone. stone butden greater than 3 cm.. She comes for a left pcnkl Jhony had previously seen the patient and place a left double j catheter - Constitutional Constitutional: Denies chills, Denies fever - EENT Eyes: denies blurred vision, denies pain Ears, nose, mouth and throat: Denies headache, Denies sore throat - Cardiovascular Cardiovascular: Denies chest pain, Denies shortness of breath - Respiratory Respiratory: Denies cough, Denies 7 - Gastrointestinal Gastrointestinal: Denies abdominal pain, Denies diarrhea, Denies nausea, Denies vomiting - Genitourinary (Female) Genitourinary: Denies dysuria, Denies hematuria - Genitourinary (Male) Genitourinary: Denies dysuria, Denies hematuria - Musculoskeletal Musculoskeletal: Denies myalgias - Integumentary Integumentary: Denies pruritus, Denies rash - Neurological Neurological: Denies numbness, Denies weakness - Psychiatric Psychiatric: Denies anxiety, Denies depression - Endocrine Endocrine: Denies fatigue, Denies weight change Past Medical History Past Medical History: Blood Disorder, Cancer, Diabetes Mellitus, Thyroid Disorder Additional Past Medical History / Comment(s): neuropathy basal cell cancer. hx. of multiple kidney stones. chronic anemia. 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 [place] teeth extraction under general anesthesia, Additional Past Anesthesia/Blood Transfusion Reaction / Comment(s): SHE STATES SHE "CODED" DURING ORAL SURGERY BECAUSE OF AN ANESTHETIC. Smoking Status: Never smoker - Past Family History Father Family Medical History: AICD/Pacemaker Mother Family Medical History: Congestive Heart Failure (CHF) Brother(s) Family Medical History: AICD/Pacemaker Medications and Allergies Home Medications Medication Instructions Recorded Confirmed Type Aspirin EC [Ecotrin] 81 mg PO HS 03/03/15 01/22/23 History Cholecalciferol [Vitamin D3] 5,000 unit PO DAILY 03/03/15 01/22/23 History Flaxseed [Flaxseed Oil] 1,200 mg PO HS 03/03/15 01/22/23 History Folic Acid 0.4 mg PO HS 03/03/15 01/22/23 History Furosemide [Lasix] 20 mg PO DAILY 03/03/15 01/22/23 History Gabapentin [Neurontin] 300 mg PO HS 03/03/15 01/22/23 History Levothyroxine Sodium [Synthroid] 75 mcg PO DAILY 03/03/15 01/22/23 History Losartan [Cozaar] 25 mg PO HS 03/03/15 01/22/23 History Tamsulosin HCl [Flomax] 0.4 mg PO DIRECTED PRN 03/03/15 01/22/23 History buPROPion XL [Wellbutrin Xl] 300 mg PO DAILY 03/03/15 01/22/23 History Cyanocobalamin (Vitamin B-12) 1,500 mcg SL DAILY 12/02/16 01/22/23 History [Vitamin B12] Ievketh-Cvgh-Asfr [id number] 1 tab PO ONETIME PRN 07/13/20 01/22/23 History [Excedrin] Potassium Citrate [Urocit-K] 20 meq PO BID 07/13/20 01/22/23 History valACYclovir HCL [Valacyclovir] 1,000 mg PO TID #21 tab 01/14/23 01/22/23 Rx Tirzepatide [Mounjaro] 5 mg SQ SA 01/22/23 01/22/23 History predniSONE [Deltasone] 40 mg PO DAILY 01/22/23 01/22/23 History Allergies Allergy/AdvReac Type Severity Reaction Status Date / Time acetaminophen Allergy Unknown Verified 01/22/23 15:36 [From Darvocet-N 100] bupivacaine HCl Allergy Anaphylaxis Verified 01/22/23 15:36 [From Marcaine] lidocaine Allergy Anaphylaxis Verified 01/22/23 15:36 lisinopril Allergy Unknown Verified 01/22/23 15:36 Penicillins Allergy Anaphylaxis Verified 01/22/23 15:36 propoxyphene napsylate Allergy Unknown Verified 01/22/23 15:36 [From Darvocet-N 100] shellfish derived [Shellfish] AdvReac Anaphylaxis Verified 01/22/23 15:36 topiramate [From Topamax] AdvReac Unknown Verified 01/22/23 15:36 Surgical - Exam - General well developed, well nourished, no distress - Eyes normal ocular movement, no icteric - ENT no hearing loss, no congestion - Neck no masses, trachea midline - Respiratory normal respiratory effort, clear to auscultation - Abdomen Abdomen: soft, non tender, no guarding, no rigid, no rebound - Integumentary no rash, no abnormal pigmentation - Neurologic no disoriented, no combative - Psychiatric oriented to time, oriented to person, oriented to place, speech is normal, memory intact Results - Imaging CT scan - abdomen: report reviewed, image reviewed CT scan - pelvis: report reviewed, image reviewed Assessment and Plan Assessment: Impression: Large left renal stone[>3cm]. Dm. Plan> left pcnl
[~2023-01-29 06:52] MED LIST: DEXAMETHASONE SOD PHOSPHATE 4 MG/ML 1 ML VIAL IV ONE; HYDROmorphone 0.5 MG/0.5 ML SYRINGE IVP PRN; MIDAZOLAM 2 MG/2 ML VIAL IV PRN; ONDANSETRON 4 MG/2 ML VIAL IVP ONE
--- NOTE | 2023-01-29 07:31 | XR ---
EXAMINATION TYPE: XR KUB DATE OF EXAM: 01/29/2023 HISTORY: Left renal Calculi N20.0 Comparison: 01/14/2023 Single KUB is submitted for interpretation. Findings: Right renal calculi: None Visualized. Right ureteral calculi: None Visualized. Left renal calculi: 13 mm calculus overlies the lower pole left kidney. Left ureteral calculi: Left ureteral stent is in place with the proximal component within the left r enal pelvis and distal component within the urinary bladder. At the left UPJ. There is a 20 mm calcul us unchanged in position and overall appearance. Pelvic calcifications: None Visualized. Bowel gas pattern is unremarkable. No free air. No mass effects. IMPRESSION: 1. Overall stable appearance.
[2023-01-29] MEDS ORDERED: LACTATED RINGERS 1,000 ML IV ONE ×3 (07:40→13:12)
[2023-01-29 08:11] LABS: Glucose,Whole Blood 93 mg/dL (70-110)
[2023-01-29] MEDS ORDERED: ROCURONIUM 10 MG/ML (5 ML VIAL) IV ONE (09:25)
[2023-01-29] MEDS ORDERED: SUCCINYLCHOLINE CHLORIDE 200 MG/10 ML VIAL IV ONE (09:25)
[2023-01-29] MEDS ORDERED: PHENYLEPHRINE-0.9% NACL SYG 1,000 MCG/10 ML SYRINGE ONE (09:25)
[2023-01-29] MEDS ORDERED: PROPOFOL 10 MG/ML 20 ML VIAL IV ONE (09:25)
[2023-01-29] MEDS ORDERED: NEOSTIGMINE 1 MG/ML 10 ML VIAL ONE (09:25)
[2023-01-29] MEDS ORDERED: GLYCOPYRROLATE 0.2 MG/ML 2 ML VIAL ONE (09:25)
[2023-01-29] MEDS ORDERED: fentaNYL (PF) 50 MCG/ML 2 ML AMP ONE (09:25)
[2023-01-29] MEDS ORDERED: IOPAMIDOL-370 100ML BTL MISCELLANE ONE (10:04)
[2023-01-29] MEDS ORDERED: TAMSULOSIN 0.4 MG CAP.ER.24H PO PRN (11:02)
[2023-01-29] MEDS ORDERED: ONDANSETRON 4 MG/2 ML VIAL IVP PRN (11:04)
[2023-01-29] MEDS ORDERED: MAG HYDROX/AL HYDROX/SIMETH 30 ML CUP PO PRN (11:04)
[2023-01-29] MEDS ORDERED: KETOROLAC 15 MG/ML 1 ML VIAL IVP PRN (11:05)
[2023-01-29] MEDS ORDERED: MORPHINE SULFATE 2 MG/ML SYRINGE IVP PRN (11:06)
--- NOTE | 2023-01-29 11:17 | P.OP ---
Date of Procedure: 01/29/23 Preoperative Diagnosis: Left renal stones large Postoperative Diagnosis: Same Procedure(s) Performed: Removal double-J catheter, placement of occluding balloon catheter left, percutaneous nephrostomy Dr. richter), percutaneous nephrostolithotomy with ultrasound, placement 10 J nephrostomy tube ( Anesthesia: GETA Surgeon: Gerber Savage Estimated Blood Loss (ml): 50 Pathology: other (Stone) Condition: stable Disposition: PACU Indications for Procedure: 60. She has a 2 cm UPJ stone and a 1.2 cm left lower pole stone. Dr. foster place a stent for obstruction of the stone She for percutaneous nephrostolithotomy. Description of Procedure: Patient brought to the operating suite. Given a general anesthetic on the transport gurney. Placement frog position with a sterile prep and drape. Double-J catheter left. It is removed. I then pass an occluding balloon catheter up into the left kidney. It is secured to a Babcock catheter. Patient placed in a prone position with care to airways and extremities. Dr. Richter of radiology performed percutaneous access to the left lower pole calyx. I dilate the tract to 30-Ukrainian. Identify the large stone and break it into smaller pieces and remove the larger pieces with grasping forceps. I advanced the scope and sheath into the UPJ where the 2 cm stone is seen. It is broken into smaller pieces and removed. I look through the collecting system and remove smaller fragments. I then do fluoroscopy and see no remaining stones. A 10 J nephrostomy tube was placed. The patient is awake and returned recovery room good condition. Blood loss is approximately 50 mL. Impression successful removal of 3.2 cm left renal stones Recommendations: The patient will be placed in the hospital postoperatively .
--- NOTE | 2023-01-29 11:29 | FL ---
EXAMINATION TYPE: FL Perc Nephrostomy New Access DATE OF EXAM: 01/29/2023 COMPARISON: NONE HISTORY: Left renal calculi Procedure had been discussed with the patient by Dr. Savage, risks, benefits, alternatives, were dis cussed and any questions were answered. Informed consent was obtained. The patient was in a semipro ne position prepped and draped on the OR table in the usual sterile fashion. Utilizing a 15 cm lengt h [place] needle a single pass was made into a lower pole posterior calyx under fluoroscopic guidance. An 0.018 guidewire is passed through the needle and there was placement of a 6-[place] catheter sheat h system. There was conversion to a 0.035 system was performed with passage of a guidewire into the ureter utilizing a directional catheter. A second safety wire was placed. Remaining portion of pro cedure performed by . Approximately 1.54 MINS AND DAP OF 15.463 of fluoroscopy was provided. IMPRESSION: 1. Successful intraoperative left nephrostomy prior to nephrolithotomy.
[2023-01-29] MEDS ORDERED: ARTIFICIAL TEARS-HYPROMELLOSE DROPS 15 ML BTL BOTH EYES PRN (11:39)
[2023-01-29] MEDS: LACTATED RINGERS 1,000 ML IV SCH (15:13)
[2023-01-29] MEDS: DEXTROSE 5%-0.45% NACL 1,000 ML IV SCH ×2 (16:10→23:08)
[2023-01-29] MEDS ORDERED: GABAPENTIN 300 MG CAP PO SCH (21:00)
[2023-01-29] MEDS ORDERED: LOSARTAN 25 MG TAB PO SCH (21:00)
[2023-01-29] MEDS: POTASSIUM CITRATE 10 MEQ TABLET.ER PO SCH (22:08)
[2023-01-29] MEDS: ACETAMINOPHEN TAB 325 MG TAB PO PRN (22:09)
[2023-01-30 02:52] VITALS: RESP 18
[2023-01-30] MEDS: LACTATED RINGERS 1,000 ML IV SCH (05:59)
[2023-01-30] MEDS: ACETAMINOPHEN TAB 325 MG TAB PO PRN ×2 (06:20→14:32)
[2023-01-30] MEDS ORDERED: LEVOTHYROXINE 75 MCG TAB PO SCH (06:30)
[2023-01-30] MEDS: POTASSIUM CITRATE 10 MEQ TABLET.ER PO SCH (08:24)
[2023-01-30] MEDS ORDERED: buPROPion XL 150 MG TAB.ER.24H PO SCH (09:00)
[2023-01-30] MEDS ORDERED: predniSONE 20 MG TAB PO SCH (09:00)
[2023-01-30] MEDS ORDERED: FUROSEMIDE 20 MG TAB PO SCH (09:00)
[2023-01-30] MEDS: DEXTROSE 5%-0.45% NACL 1,000 ML IV SCH (12:20)
[2023-01-30 12:29] VITALS: BP 142/86; PULSE 87; TEMP 97.8
--- NOTE | 2023-01-30 13:09 | P.DS ---
Providers Expected date of discharge: 01/30/23 Attending physician: Gerber Savage Primary care physician: [facility] Course: On the day of admission, the patient underwent an uncomplicated left PCNL. The perioperative course was unremarkable. On the first postoperative day, she reported only incisional discomfort. She denied nausea, dyspnea, and chest pain. She was afebrile with stable vital signs. On examination, the abdomen was soft and nontender. The nephrostomy tube was intact. The dressing was clean and dry. The nephrostomy tube was draining blood-tinged urine. The Babcock catheter was draining clear yellow urine, and was removed prior to discharge. Procedures: Left percutaneous nephrolithotomy (PCNL) on 01/29/2023. Patient Condition at Discharge: Good Plan - Discharge Summary Discharge Rx Participant: No New Discharge Prescriptions: No Action buPROPion XL [Wellbutrin Xl] 300 mg PO DAILY Tamsulosin HCl [Flomax] 0.4 mg PO DIRECTED PRN PRN Reason: kidney stones Losartan [Cozaar] 25 mg PO HS Levothyroxine Sodium [Synthroid] 75 mcg PO DAILY Gabapentin [Neurontin] 300 mg PO HS Furosemide [Lasix] 20 mg PO DAILY Folic Acid 0.4 mg PO HS Flaxseed [Flaxseed Oil] 1,200 mg PO HS Cholecalciferol [Vitamin D3] 5,000 unit PO DAILY Aspirin EC [Ecotrin] 81 mg PO HS Cyanocobalamin (Vitamin B-12) [Vitamin B12] 1,500 mcg SL DAILY [id number]-Equb-Xzpb [phone] [Excedrin] 1 tab PO ONETIME PRN PRN Reason: Pain Potassium Citrate [Urocit-K] 20 meq PO BID predniSONE [Deltasone] 40 mg PO DAILY valACYclovir HCL [Valacyclovir] 1,000 mg PO TID #21 tab Tirzepatide [Mounjaro] 5 mg SQ SA Discharge Medication List Aspirin EC [Ecotrin] 81 mg PO HS 03/03/15 [History] Cholecalciferol [Vitamin D3] 5,000 unit PO DAILY 03/03/15 [History] Flaxseed [Flaxseed Oil] 1,200 mg PO HS 03/03/15 [History] Folic Acid 0.4 mg PO HS 03/03/15 [History] Furosemide [Lasix] 20 mg PO DAILY 03/03/15 [History] Gabapentin [Neurontin] 300 mg PO HS 03/03/15 [History] Levothyroxine Sodium [Synthroid] 75 mcg PO DAILY 03/03/15 [History] Losartan [Cozaar] 25 mg PO HS 03/03/15 [History] Tamsulosin HCl [Flomax] 0.4 mg PO DIRECTED PRN 03/03/15 [History] buPROPion XL [Wellbutrin Xl] 300 mg PO DAILY 03/03/15 [History] Cyanocobalamin (Vitamin B-12) [Vitamin B12] 1,500 mcg SL DAILY 12/02/16 [History] Ivdpolz-Ulfd-Omcp [phone] [Excedrin] 1 tab PO ONETIME PRN 07/13/20 [History] Potassium Citrate [Urocit-K] 20 meq PO BID 07/13/20 [History] valACYclovir HCL [Valacyclovir] 1,000 mg PO TID #21 tab 01/14/23 [Rx] Tirzepatide [Mounjaro] 5 mg SQ SA 01/22/23 [History] predniSONE [Deltasone] 40 mg PO DAILY 01/22/23 [History] Follow up Appointment(s)/Referral(s): Gerber Savage MD [STAFF PHYSICIAN] - 02/03/23 Activity/Diet/Wound Care/Special Instructions: Discharge home with left nephrostomy tube. Diet as tolerated. Drink plenty of fluids. Patient will follow up with Dr. Savage on 02/03/2023 for removal of the left nephrostomy tube. Discharge Disposition: HOME SELF-CARE
[2023-02-01] MEDS ORDERED: PATIENT'S OWN (Tirzepatide [Mounjaro] 5 MG/0.5 ML Pen.Injctr) SQ SCH (09:00)
== END 2023-01-30 17:09 | disposition home or self-care (01) ==
LOC: OR 06:52 → 5NMEDONC 11:07 → OR 01-30 17:09
PROVIDERS: ATTEND Urology
DX: N20.0 Calculus of kidney (principal); E11.9 Type 2 diabetes mellitus without complications; E07.9 Disorder of thyroid, unspecified; Z87.442 Personal history of urinary calculi; Z90.49 Acquired absence of other specified parts of digestive tract; Z90.710 Acquired absence of both cervix and uterus; Z82.49 Family history of ischemic heart disease and other diseases of the circulatory system; Z79.82 Long term (current) use of aspirin; Z79.899 Other long term (current) drug therapy; Z79.890 Hormone replacement therapy; Z79.624 Long term (current) use of inhibitors of nucleotide synthesis; Z79.52 Long term (current) use of systemic steroids; Z88.0 Allergy status to penicillin
CPT/HCPCS: 50081; 86900; 86901; 86850; 82365; 50432; 74018; C1769 ×6; C2628; C1729 ×2; C1894; J0330; J1100; J2710; J0690; J2405; J3010; J2370; J2704; J7512; Q9967

== ENCOUNTER → 2023-05-31 | Outpatient (CLI) | payer BC ==
[2023-05-31 13:01] LABS: Partial Thromboplastin Time 28.3 sec (22.0-30.0)
[2023-05-31 23:50] LABS: HCT 44.2 % (37.2-46.3); HGB 12.7 d/dL (12.0-15.0); MCH 25.2 pg (27.0-32.0); MCHC 28.7 d/dL (32.0-37.0); MCV 87.9 FL (80.0-97.0); Mean Platelet Volume 11.1 FL (9.5-12.2); NRBC Per 100 WBC 0 X 10*3/uL (0.00-0.01); Platelet Count 240 X 10*3/uL (140-440); RBC 5.03 X 10*6/uL (4.10-5.20); WBC 6.02 X 10*3/uL (4.50-10.00)
[2023-06-01 08:58] LABS: % Iron Saturation 13.45 (12.00-45.00); ALT 17 U/L (8-44); AST 20 U/L (13-35); Albumin 3.9 d/dL (3.8-4.9); Albumin/Globulin Ratio 2.05 Ratio (1.60-3.17); Alkaline Phosphatase 79 U/L (41-126); BUN/Creat Ratio 11.47 Ratio (12.00-20.00); Blood Urea Nitrogen 19.5 mg/dL (9.0-27.0); Calcium 9.6 mg/dL (8.7-10.3); Carbon Dioxide 24.2 mmol/L (21.6-31.8); Chloride 106 mmol/L (96-109); Chol/HDL Ratio 1.94 Ratio; Globulin 1.9 d/dL (1.6-3.3); Glucose 76 mg/dL (70-110); Iron 55 UG/DL (50-170); LDL Cholesterol,Calculated 44.4 mg/dL (0.0-131.0); Magnesium 2.1 mg/dL (1.5-2.4); Phosphorus 4.1 mg/dL (2.4-5.1); Potassium 4.1 mmol/L (3.5-5.5); Sodium 143 mmol/L (135-145); Total Bilirubin 0.4 mg/dL (0.3-1.2); Total Iron Binding Capacity 409 UG/DL (228-460); Total Protein 5.8 d/dL (6.2-8.2)
[2023-06-01 09:27] LABS: Vitamin B12 >3600.0 pg/mL (200.0-944.0)
[2023-06-01 11:22] LABS: Prealbumin 24.7 mg/dL (18.0-42.0)
== END | disposition home or self-care (01) ==
LOC: LABWHC1 11:01
PROVIDERS: ATTEND Surgery Plastic and Reconstructive Surgery
DX: E66.01 Morbid (severe) obesity due to excess calories (principal); E89.1 Postprocedural hypoinsulinemia; D50.8 Other iron deficiency anemias; D50.9 Iron deficiency anemia, unspecified; K91.2 Postsurgical malabsorption, not elsewhere classified; E44.0 Moderate protein-calorie malnutrition; E44.1 Mild protein-calorie malnutrition; E45 Retarded development following protein-calorie malnutrition; E55.9 Vitamin D deficiency, unspecified; K74.1 Hepatic sclerosis; N19 Unspecified kidney failure; T56.894A Toxic effect of other metals, undetermined, initial encounter; K50.90 Crohn's disease, unspecified, without complications
CPT/HCPCS: 36415; 80053; 80061; 82306; 82525; 82607; 82728; 82746; 83036; 83540; 83550; 83735; 83970; 84100; 84134; 84255; 84425; 84443; 84590; 84630; 85027; 85610; 85730

== ENCOUNTER 2023-07-14 09:04 | Day surgery (SDC) | payer BC ==
[2023-07-10 15:36] VITALS: BMI 35.2
[~2023-07-14 09:04] MED LIST changes: -DEXAMETHASONE SOD PHOSPHATE 4 MG/ML 1 ML VIAL IV ONE; -HYDROmorphone 0.5 MG/0.5 ML SYRINGE IVP PRN; +LACTATED RINGERS 1,000 ML IV SCH; -MIDAZOLAM 2 MG/2 ML VIAL IV PRN; -ONDANSETRON 4 MG/2 ML VIAL IVP ONE
--- NOTE | 2023-07-14 09:44 | P.GSHP ---
History of Present Illness H&P Date: 07/14/23 CHIEF COMPLAINT: Colon screen HISTORY OF PRESENT ILLNESS: The patient is a 63-year-old female who presents for colon screen. Lower endoscopy was offered for further evaluation and management. PAST MEDICAL HISTORY: Please see list. PAST SURGICAL HISTORY: Please see list. MEDICATIONS: Please see list. ALLERGIES: Please see list. SOCIAL HISTORY: No illicit drug use FAMILY HISTORY: No reports of Crohn disease or ulcerative colitis. REVIEW OF ORGAN SYSTEMS: CONSTITUTIONAL: No reports of fevers or chills. PHYSICAL EXAM: VITAL SIGNS: Stable GENERAL: Well-developed pleasant in no acute distress. HEENT: No scleral icterus. Extraocular movements grossly intact. Moist buccal mucosa. NECK: Supple without lymphadenopathy. CHEST: Unlabored respirations. Equal bilateral excursions. CARDIOVASCULAR: Regular rate and rhythm. Distal 2+ pulses. ABDOMEN: Soft, nontender, nondistended. MUSCULOSKELETAL: No clubbing, cyanosis, or edema. ASSESSMENT: 1. Colon screen. PLAN: 1. Recommend proceeding with a lower endoscopy Past Medical History Past Medical History: Blood Disorder, Diabetes Mellitus, Sleep Apnea/CPAP/BIPAP, Thyroid Disorder Additional Past Medical History / Comment(s): neuropathy. hx. of multiple kidney stones. chronic anemia History of Any Multi-Drug Resistant Organisms: None Reported Past Surgical History: Appendectomy, Bariatric Surgery, Cholecystectomy, Hernia Repair, Hysterectomy Additional Past Surgical History / Comment(s): Percutaneous Nephro Lithotomy. [place] teeth extraction under general anesthesia, ureter stent placement. Bowel Resection - Mar 2023 , colonoscopy Additional Past Anesthesia/Blood Transfusion Reaction / Comment(s): SHE STATES SHE "CODED" DURING ORAL SURGERY BECAUSE OF AN ANESTHETIC. no supriya during procedures, no blood transfusion Smoking Status: Never smoker - Past Family History Father Family Medical History: AICD/Pacemaker, Deep Vein Thrombosis (DVT), Pulmonary Embolus Mother Family Medical History: Congestive Heart Failure (CHF) Brother(s) Family Medical History: AICD/Pacemaker Medications and Allergies Home Medications Medication Instructions Recorded Confirmed Type Furosemide [Lasix] 20 mg PO DAILY 03/03/15 07/14/23 History Levothyroxine Sodium [Synthroid] 75 mcg PO DAILY 03/03/15 07/14/23 History Losartan [Cozaar] 25 mg PO HS 03/03/15 07/14/23 History Potassium Citrate [Urocit-K] 20 meq PO BID 07/13/20 07/14/23 History Tirzepatide [Mounjaro] 5 mg SQ SA 01/22/23 07/14/23 History Atorvastatin [Lipitor] 10 mg PO HS 03/26/23 07/14/23 History buPROPion XL [Wellbutrin XL] 300 mg PO DAILY 03/26/23 07/14/23 History Acetaminophen Tab [Tylenol Tab] 1,000 mg PO Q6HR PRN #30 tablet 03/29/23 07/14/23 Rx Magnesium Chloride [Slow-Mag] 64 mg PO DAILY 04/18/23 07/14/23 History Cyanocobalamin (Vitamin B-12) 1 tab PO DAILY 07/10/23 07/14/23 History [Vitamin B-12] Gabapentin 300 mg PO HS 07/10/23 07/14/23 History Venofer IV Q30D 07/10/23 History Vitamin B Complex 1 each PO DAILY 07/10/23 07/14/23 History Allergies Allergy/AdvReac Type Severity Reaction Status Date / Time bupivacaine HCl Allergy Severe Anaphylaxis Verified 07/14/23 09:26 [From Marcaine] lidocaine Allergy Anaphylaxis Verified 07/14/23 09:26 lisinopril Allergy Unknown Verified 07/14/23 09:26 Penicillins Allergy Anaphylaxis Verified 07/14/23 09:26 propoxyphene napsylate Allergy Unknown Verified 07/14/23 09:26 [From Darvocet-N 100] morphine AdvReac Nausea & Verified 07/14/23 09:26 Vomiting shellfish derived [Shellfish] AdvReac Anaphylaxis Verified 07/14/23 09:26 topiramate [From Topamax] AdvReac Unknown Verified 07/14/23 09:26 Surgical - Exam Vital Signs Temp Pulse BP Pulse Ox 97.2 F L 80 168/87 98 07/14/23 09:27 07/14/23 09:27 07/14/23 09:27 07/14/23 09:27
[2023-07-14 09:46] VITALS: TEMP 97.2
[2023-07-14] MEDS ORDERED: PROPOFOL 10 MG/ML 20 ML VIAL IV ONE (09:46)
[2023-07-14 10:04] LABS: Glucose,Whole Blood 79 mg/dL (70-110)
--- NOTE | 2023-07-14 10:18 | P.PCN ---
Date of Procedure: 07/14/23 Description of Procedure: PREOPERATIVE DIAGNOSIS: Colonoscopy screening. POSTOPERATIVE DIAGNOSIS: Colonoscopy screening. Diverticulosis, scattered. Hyperplastic ascending colon polyp OPERATION: Colonoscopy to the cecum, ileocecal valve and appendiceal orifice. SURGEON: Aydee Valentin MD. ANESTHESIA: MAC. INDICATIONS: The patient is a 63-year-old female who presents for colonoscopy screening. Last colonoscopy 5 years. Benefits and risks were described and informed consent was obtained. DESCRIPTION OF PROCEDURE: The patient had undergone Miralax prep. The patient had been brought into the operating room and laid in the left lateral decubitus position. After adequate intravenous sedation, the rectum was examined with 2% lidocaine jelly. External hemorrhoids were encountered. The rectal tone was within normal limits. No lesions were palpated in the rectal vault. An Olympus colonoscope was advanced until the cecum, ileocecal valve and appendiceal orifice were clearly viewed. The prep was excellent. Scattered diverticulosis was encountered. Hyperplastic 3 mm polyp identified at the ascending colon. No evidence of focal colitis was found. Retroflexion of the scope demonstrated grade 3 internal hemorrhoids without active bleeding or inflammation. The colon was desufflated. The patient had tolerated the procedure well. Withdrawal time was over 6 minutes. FINDINGS: Aronchick preparation quality scale 1 (1-5) Internal hemorrhoids, grade 3 External prolapsed hemorrhoids, grade 3 No arteriovenous malformations. Sigmoid diverticulosis Hyperplastic 3 mm polyp identified at the ascending colon. No focal colitis. RECOMMENDATIONS: Lower endoscopy in 5 years, 2027 Plan - Discharge Summary Discharge Rx Participant: No New Discharge Prescriptions: Continue RX: Losartan [Cozaar] 25 mg PO HS RX: Levothyroxine Sodium [Synthroid] 75 mcg PO DAILY RX: Furosemide [Lasix] 20 mg PO DAILY RX: Potassium Citrate [Urocit-K] 20 meq PO BID RX: Acetaminophen Tab [Tylenol] 1,000 mg PO Q6HR PRN #30 tablet PRN Reason: Pain RX: Gabapentin 300 mg PO HS RX: Cyanocobalamin (Vitamin B-12) [Vitamin B-12] 1 tab PO DAILY RX: Tirzepatide [Mounjaro] 5 mg SQ SA RX: buPROPion XL [Wellbutrin XL] 300 mg PO DAILY RX: Atorvastatin [Lipitor] 10 mg PO HS RX: Magnesium Chloride [Slow-Mag] 64 mg PO DAILY RX: Vitamin B Complex 1 each PO DAILY Venofer IV Q30D Discharge Medication List RX: Furosemide [Lasix] 20 mg PO DAILY 03/03/15 [History] RX: Levothyroxine Sodium [Synthroid] 75 mcg PO DAILY 03/03/15 [History] RX: Losartan [Cozaar] 25 mg PO HS 03/03/15 [History] RX: Potassium Citrate [Urocit-K] 20 meq PO BID 07/13/20 [History] RX: Tirzepatide [Mounjaro] 5 mg SQ SA 01/22/23 [History] RX: Atorvastatin [Lipitor] 10 mg PO HS 03/26/23 [History] RX: buPROPion XL [Wellbutrin XL] 300 mg PO DAILY 03/26/23 [History] RX: Acetaminophen Tab [Tylenol] 1,000 mg PO Q6HR PRN #30 tablet 03/29/23 [Rx] RX: Magnesium Chloride [Slow-Mag] 64 mg PO DAILY 04/18/23 [History] RX: Cyanocobalamin (Vitamin B-12) [Vitamin B-12] 1 tab PO DAILY 07/10/23 [History] RX: Gabapentin 300 mg PO HS 07/10/23 [History] RX: Vitamin B Complex 1 each PO DAILY 07/10/23 [History] Venofer IV Q30D 07/10/23 [History] [facility]Ref[facility] [place] [facility] Patient Instructions/Handouts: Diverticulosis Diet (GEN), Diverticulosis (GEN), Colorectal Polyps (GEN) Activity/Diet/Wound Care/Special Instructions: Repeat colonoscopy in 3 years, 2027 Discharge Disposition: HOME SELF-CARE
[2023-07-14 10:40] VITALS: RESP 16
[2023-07-14 11:04] VITALS: BP 140/90; PULSE 75
== END 2023-07-14 10:59 | disposition home or self-care (01) ==
LOC: ORWHC2ENDO 09:04
PROVIDERS: ATTEND Surgery Plastic and Reconstructive Surgery
DX: Z12.11 Encounter for screening for malignant neoplasm of colon (principal); K57.30 Diverticulosis of large intestine without perforation or abscess without bleeding; K63.5 Polyp of colon; K64.2 Third degree hemorrhoids; E11.9 Type 2 diabetes mellitus without complications; G47.33 Obstructive sleep apnea (adult) (pediatric); E07.9 Disorder of thyroid, unspecified; Z87.442 Personal history of urinary calculi; Z90.49 Acquired absence of other specified parts of digestive tract; Z90.710 Acquired absence of both cervix and uterus; Z98.890 Other specified postprocedural states; Z83.2 Family history of diseases of the blood and blood-forming organs and certain disorders involving the immune mechanism; Z82.49 Family history of ischemic heart disease and other diseases of the circulatory system; Z79.890 Hormone replacement therapy; Z88.0 Allergy status to penicillin; Z88.5 Allergy status to narcotic agent; Z79.899 Other long term (current) drug therapy
CPT/HCPCS: 45378; J2704; 45380

== ENCOUNTER → 2023-07-30 | Outpatient (CLI) | payer BC ==
[2023-07-30 16:28] VITALS: BP 143/91; PULSE 76; TEMP 97.8; BMI 33.7
--- NOTE | 2023-07-30 17:16 | P.BASOAP ---
Subjective Progress Note Date: 07/30/23 DATE OF SERVICE: 07/30/23 CHIEF COMPLAINT: Status post gastric bypass HISTORY OF PRESENT ILLNESS: Claudia Carson is a 63-year-old female who comes with lifelong morbid obesity. She is status post gastric bypass and have left him with loss over 90+ pounds. She had recent history of bowel obstruction hernia status post repair. She reports family history of grandfather with stomach cancer. He has had no prior upper scopes. She has personal history of hiatal hernia. She has pre-existing history of abdominal pain. She presents due to her family history of stomach cancer and a hiatal hernia. At height of 5 feet 5 inches, her ideal body weight is 149 pounds. She comes in 203 pounds. Her body mass index is 33.8. Her highest weight to injure 93 pounds, body mass index 48.9. She is 54 pounds overweight. PAST MEDICAL HISTORY: 1. Morbid obesity due to excess calories 2. Body mass index of 48.9 3. Hypertensive heart disease 4. Hypothyroidism 5. Diabetes type 2, [id number] 6. Hyperlipidemia 7. Depressive disorder 8. Neuropathy 9. Iron deficiency anemia 10. Obstructive sleep apnea 11. Hypercoagulable disorder 12. Kidney stones PAST SURGICAL HISTORY: 1. Lithotripsy 2. Frozen tooth extraction 3. Bowel resection 4. Colonoscopy 5. Appendectomy 6. Gastric bypass 7. Cholecystectomy 8. Hernia repair HOME MEDICATIONS: Home Medications Medication Instructions Recorded Confirmed Furosemide [Lasix] 20 mg PO DAILY 03/03/15 07/30/23 Levothyroxine Sodium [Synthroid] 75 mcg PO DAILY 03/03/15 07/30/23 Losartan [Cozaar] 25 mg PO HS 03/03/15 07/30/23 Potassium Citrate [Urocit-K] 20 meq PO BID 07/13/20 07/30/23 Tirzepatide [Mounjaro] 5 mg SQ SA 01/22/23 07/30/23 Atorvastatin [Lipitor] 10 mg PO HS 03/26/23 07/30/23 buPROPion XL [Wellbutrin XL] 300 mg PO DAILY 03/26/23 07/30/23 Magnesium Chloride [Slow-Mag] 64 mg PO DAILY 04/18/23 07/30/23 Cyanocobalamin (Vitamin B-12) 1 tab PO DAILY 07/10/23 07/30/23 [Vitamin B-12] Gabapentin 300 mg PO HS 07/10/23 07/30/23 Venofer 1 injection IV Q30D 07/10/23 07/30/23 Vitamin B Complex 1 each PO DAILY 07/10/23 07/30/23 Previous Rx's Medication Instructions Recorded Acetaminophen Tab [Tylenol] 1,000 mg PO Q6HR PRN #30 tablet 03/29/23 ALLERGIES: Allergies Allergy/AdvReac Type Severity Reaction Status Date / Time bupivacaine HCl Allergy Severe Anaphylaxis Verified 07/14/23 09:26 [From Marcaine] lidocaine Allergy Anaphylaxis Verified 07/14/23 09:26 lisinopril Allergy Unknown Verified 07/14/23 09:26 Penicillins Allergy Anaphylaxis Verified 07/14/23 09:26 propoxyphene napsylate Allergy Unknown Verified 07/14/23 09:26 [From Darvocet-N 100] morphine AdvReac Nausea & Verified 07/14/23 09:26 Vomiting shellfish derived [Shellfish] AdvReac Anaphylaxis Verified 07/14/23 09:26 topiramate [From Topamax] AdvReac Unknown Verified 07/14/23 09:26 SOCIAL HISTORY: Past tobacco use. FAMILY HISTORY: No family history of ulcerative colitis disease or Crohn's disease. Family history of morbid obesity. No lupus in the family. No reports of stomach or esophageal cancer. Family history of pulmonary embolism REVIEW OF ORGAN SYSTEMS: CONSTITUTIONAL: At height of 5 feet 5 inches, her ideal body weight is 149 pounds. She comes in 203 pounds. Her body mass index is 33.8. Her highest weight to injure 93 pounds, body mass index 48.9. She is 54 pounds overweight. HEENT: Denies any active troubles with vision or hearing. ENDOCRINE: Has diabetes. No hypothyroidism. CARDIOVASCULAR: Has hypertensive heart disease. Has hyperlipidemia. RESPIRATORY: Has daytime somnolence. GASTROINTESTINAL: Denies any bright red blood per rectum. No diarrhea. No constipation. Has gastroesophageal reflux disease. GENITOURINARY: Denies bladder urgency. No recent blood in urine MUSCULOSKELETAL: Has lower back pain and joint pain. Has osteoarthritis of the knees. NEURO: No headaches. No seizure disorders. Has neuropathy. PSYCH: Has depression. No suicidal ideation. RHEUMATOLOGIC: No lupus. No rheumatoid arthritis. HEMATOLOGIC: Denies any abnormal bleeding or bruising. Has family history of DVT thrombosis. SKIN: No rash. No skin cancer. PHYSICAL EXAM: VITAL SIGNS: Height 5 foot 5 inches, weight 203 pounds. BMI 33.8 Vital Signs Temp 97.8 F 07/30/23 16:19 Pulse 76 07/30/23 16:19 Resp BP 143/91 07/30/23 16:19 Pulse Ox FiO2 GENERAL: Well-developed in no acute distress. HEENT: No scleral icterus. Extraocular movements grossly intact. Hears conversational speech. No nasal drainage. NECK: Supple without lymphadenopathy. CHEST: Nonlabored respirations with equal bilateral excursions. CARDIOVASCULAR: Regular rate and regular rhythm. Distal 2+ pulses. ABDOMEN: Obese, soft, nontender, nondistended. MUSCULOSKELETAL: No clubbing, cyanosis. NEURO: No focal or lateralizing signs. Cranial nerves 2 through 12 grossly within normal limits. PSYCH: Appropriate affect. Alert and oriented to person, place and time. SKIN: Good skin turgor. Well perfused. LABS: Reviewed. Creatinine elevated. COLON FINDINGS: Aronchick preparation quality scale 1 (1-5) Internal hemorrhoids, grade 3 External prolapsed hemorrhoids, grade 3 No arteriovenous malformations. Sigmoid diverticulosis Hyperplastic 3 mm polyp identified at the ascending colon. No focal colitis. STUDIES: CT of the abdomen and pelvis independently reviewed demonstrates dilated stomach and small bowel all obstruction February 2023. This is my independent interpretation. ASSESSMENT: 1. Morbid obesity due to excess calories 2. Body mass index of 48.9 3. Hypertensive heart disease 4. Hypothyroidism 5. Diabetes type 2, [id number] 6. Hyperlipidemia 7. Depressive disorder 8. Neuropathy 9. Iron deficiency anemia 10. Obstructive sleep apnea 11. Hypercoagulable disorder 12. Kidney stones 13. Status post gastric bypass 14. Family history stomach cancer 15. Diverticulosis 16. Colon polyp 17. Diabetic nephropathy 18. PLAN: 1. Recommend upper endoscopy as she has no hernia family history of stomach cancer. 2. Recommend upper GI with her history of gastric bypass Objective - Vital Signs Vital signs: Vital Signs Temp 97.8 F 07/30/23 16:19 Pulse 76 07/30/23 16:19 Resp BP 143/91 07/30/23 16:19 Pulse Ox FiO2 Intake & Output 07/29/23 07/30/23 07/30/23 18:59 06:59 18:59 Weight 92.079 kg Assessment/Plan Plan: Date: 07/30/23 Initial Weight: 157.397 kg Initial BMI: 57.7 Current Weight: 92.079 kg Current BMI: 33.7 Type of Surgery: Total Volume in Band: Previous Volume: Volume Removed: Volume Added: Band Size:
== END ==
LOC: BARWHC3 16:07
PROVIDERS: ATTEND Surgery Plastic and Reconstructive Surgery
DX: E66.01 Morbid (severe) obesity due to excess calories (principal); E03.9 Hypothyroidism, unspecified; E78.5 Hyperlipidemia, unspecified; F32.A Depression, unspecified; E11.40 Type 2 diabetes mellitus with diabetic neuropathy, unspecified; D50.9 Iron deficiency anemia, unspecified; N20.0 Calculus of kidney; E11.21 Type 2 diabetes mellitus with diabetic nephropathy; G47.33 Obstructive sleep apnea (adult) (pediatric); I11.9 Hypertensive heart disease without heart failure; D68.59 Other primary thrombophilia; K57.30 Diverticulosis of large intestine without perforation or abscess without bleeding; K63.5 Polyp of colon; Z98.84 Bariatric surgery status; Z83.79 Family history of other diseases of the digestive system; Z68.42 Body mass index [BMI] 45.0-49.9, adult; Z79.890 Hormone replacement therapy; Z79.899 Other long term (current) drug therapy; Z79.85 Long-term (current) use of injectable non-insulin antidiabetic drugs; Z88.0 Allergy status to penicillin; Z88.8 Allergy status to other drugs, medicaments and biological substances; Z88.1 Allergy status to other antibiotic agents; Z91.013 Allergy to seafood; Z88.5 Allergy status to narcotic agent; Z87.891 Personal history of nicotine dependence
CPT/HCPCS: 99211

== ENCOUNTER → 2023-09-05 | Outpatient (CLI) | payer BC ==
--- NOTE | 2023-09-05 10:51 | FL ---
ESOPHOGRAM. HISTORY: Dysphagia Esophagram was performed per the air contrast technique. The patient swallowed barium and effervesce nt crystals without difficulty or delay. Esophageal peristalsis and motility appear to be within normal limits. There is no evidence for filling defect, mass or diverticulum. No hiatal hernia seen. There is Tracey-en-Y gastric bypass noted. Contrast enters the postoperative st omach and proximal small bowel without difficulty or delay. Subsequently single contrast cervical esophagram was performed which fails demonstrate evidence for a spiration penetration or mass. IMPRESSION: Postoperative changes of Tracey-en-Y gastric bypass without significant abnormality appreciated.
== END | disposition home or self-care (01) ==
LOC: RADUSWWP 08:13
PROVIDERS: ATTEND Surgery Plastic and Reconstructive Surgery
DX: R13.10 Dysphagia, unspecified (principal); Z98.84 Bariatric surgery status
CPT/HCPCS: 74220

== ENCOUNTER 2024-01-30 19:42 | Inpatient (IN) | payer BC, OTHER ==
[2024-01-30 20:48] LABS: Basophils % (A) 0 %; Eosinophils % (A) 0 %; HCT 45.8 % (34.0-46.0); HGB 13.9 gm/dL (11.4-16.0); Hypochromasia Slight; Lymphocytes # (A) 0.4 k/uL (1.0-4.8); Lymphocytes % (A) 3 %; MCH 25.3 pg (25.0-35.0); MCHC 30.4 g/dL (31.0-37.0); MCV 83.2 fL (80.0-100.0); Mean Platelet Volume 8.7; Monocytes # (A) 0.5 k/uL (0-1.0); Monocytes % (A) 4 %; Neutrophils # (A) 12.2 k/uL (1.3-7.7); Neutrophils % (A) 92 %; Platelet Count 327 k/uL (150-450); RBC 5.51 m/uL (3.80-5.40); RDW 14.1 % (11.5-15.5); WBC 13.2 k/uL (3.8-10.6)
[2024-01-30 20:53] LABS: ALT 24 U/L (4-34); AST 39 U/L (14-36); African American GFR (CKD) 45 (>60 ml/min/1.73 sqM); Albumin 4.7 g/dL (3.5-5.0); Alkaline Phosphatase 95 U/L (38-126); Amylase 60 U/L (30-110); Anion Gap 11 mmol/L; Blood Urea Nitrogen 26 mg/dL (7-17); Calcium 9.8 mg/dL (8.4-10.2); Carbon Dioxide 25 mmol/L (22-30); Chloride 103 mmol/L (98-107); Glucose 110 mg/dL (74-99); Lipase 167 U/L (23-300); Non-African American GFR(CKD) 39 (>60 ml/min/1.73 sqM); Potassium 4.9 mmol/L (3.5-5.1); Sodium 139 mmol/L (137-145); Total Bilirubin 1.3 mg/dL (0.2-1.3); Total Protein 7.2 g/dL (6.3-8.2)
[2024-01-30 21:14] LABS: Appearance,Urine Clear (Clear); Bilirubin,Urine 1+ (Negative); Blood,Urine Negative (Negative); Color,Urine Yellow; Glucose,Urine (UA) Negative (Negative); Ketones,Urine 3+ (Negative); Leukocyte Esterase,Urine Large (Negative); Mucus,Urine Rare /hpf; Nitrite,Urine Negative (Negative); PH, Urine 5.5 (5.0-8.0); Protein,Urine 1+ (Negative); RBC,Urine 4 /hpf (0-5); Specific Gravity,Urine 1.023 (1.001-1.035); Squamous Epithelial Cell,Urine <1 /hpf (0-4); WBC,Urine 21 /hpf (0-5)
--- NOTE | 2024-01-30 21:24 | CT ---
EXAMINATION TYPE: CT abdomen pelvis wo con CT DLP: 676.7 mGycm, Automated exposure control for dose reduction was used. DATE OF EXAM: 01/30/2024 9:02 PM COMPARISON: CT abdomen pelvis most recent from 03/26/2023 CLINICAL INDICATION:Female, 63 years old with history of abdominal pain, possible hernia; abdominal p ain, vomiting, possible hernia TECHNIQUE: Axial CT abdomen pelvis wo con;Sagittal and coronal reformats were created on a separate workstation. Contrast used: mL of , (none if empty) Oral contrast used: without Oral Contrast (none if empty) FINDINGS: LOWER CHEST: Unremarkable ABDOMEN LIVER: Vague hypodense area in the liver measuring 32 mm. GALLBLADDER AND BILE DUCTS: Gallbladder surgically absent. PANCREAS: Unremarkable. SPLEEN: Unremarkable. ADRENAL GLANDS: Unremarkable. KIDNEYS AND URETERS: Nonobstructing calculus left renal pelvis measuring 7 mm. PELVIS BLADDER: Unremarkable REPRODUCTIVE: Unremarkable. ABDOMEN & PELVIS STOMACH AND BOWEL: There is a ventral wall hernia where a loop of small bowel enters with upstream di lation of small bowel measuring up to 41 mm. The swallow after this lesion is relatively nondistended . There is paucity of stool throughout the colon. PERITONEUM/RETROPERITONEUM: No evidence of pneumoperitoneum or free fluid. VASCULATURE: No evidence of aortic aneurysm. MUSCULOSKELETAL: No acute osseous abnormalities LYMPH NODES: No gross evidence for lymphadenopathy. SOFT TISSUE/ABDOMINAL WALL: Ventral wall hernia containing loop of bowel with some wall thickening an d fat stranding in this loop of bowel. IMPRESSION: 1. Small bowel obstruction secondary to Ventral wall hernia containing loop of small bowel. Surgical consultation recommended. 2. Indeterminate area in the right hepatic lobe seen on prior on 12/27/2022 consider MRI liver mass pr otocol for complete characterization. 3. Nonobstructing left renal calculus.
[2024-01-30] MEDS: ONDANSETRON 4 MG/2 ML VIAL IVP STA (22:55)
[2024-01-30] MEDS ORDERED: NALOXONE 0.4 MG/ML 1 ML VIAL IV PRN (23:01)
[2024-01-30] MEDS ORDERED: MORPHINE SULFATE 4 MG/ML SYRINGE IV PRN (23:01)
[2024-01-30] MEDS: SODIUM CHLORIDE 0.9% 1,000 ML IV SCH (23:08)
--- NOTE | 2024-01-30 23:09 | ED ---
Abdominal Pain HPI - General Chief Complaint: Abdominal Pain Stated Complaint: Abd Pain,Vomiting Time Seen by Provider: 01/30/24 20:12 Source: patient Mode of arrival: ambulatory Limitations: no limitations - History of Present Illness Initial Comments: This patient is a 63-year-old woman who presents with complaint of periumbilical pain and a lump that she has noticed. She states the last time that she had similar feelings she required hernia repair. This was February 2023. Patient relates that number days ago she was in the process of moving and lifted something and then it felt like she may have strained something in her abdomen. She states that over the course of the past day and a half she has had increasing pain. She has had pain that comes in waves will come on for a number of minutes and then resolve for about 20 minutes. She has had some dry heaves. No change in bowel movements or urination. MD Complaint: abdominal pain Onset/Timin -: days(s) Location: periumbilical Radiation: none Migration to: no migration Severity: moderate Quality: cramping, aching Consistency: intermittent Improves With: nothing Worsens With: nothing Associated Symptoms: nausea - Related Data Home Medications Medication Instructions Recorded Confirmed Levothyroxine Sodium [Synthroid] 75 mcg PO DAILY 03/03/15 01/31/24 Losartan [Cozaar] 25 mg PO HS 03/03/15 01/31/24 Tirzepatide [Mounjaro] 5 mg SQ SA 01/22/23 01/31/24 Atorvastatin [Lipitor] 10 mg PO HS 03/26/23 01/31/24 buPROPion XL [Wellbutrin XL] 300 mg PO DAILY 03/26/23 01/31/24 Cyanocobalamin (Vitamin B-12) 1,000 mg PO DAILY 07/10/23 01/31/24 [Vitamin B-12] Gabapentin 300 mg PO HS 07/10/23 01/31/24 Vitamin B Complex 1 cap PO DAILY 07/10/23 01/31/24 Cholecalciferol [Vitamin D3 (125 125 mcg PO DAILY 01/31/24 01/31/24 Mcg = 5000 Iu)] Allergies Allergy/AdvReac Type Severity Reaction Status Date / Time bupivacaine HCl Allergy Severe Anaphylaxis Verified 01/31/24 11:08 [From Marcaine] lidocaine Allergy Anaphylaxis Verified 01/31/24 11:08 lisinopril Allergy THROAT Verified 01/31/24 11:08 SWELLING Penicillins Allergy Anaphylaxis Verified 01/31/24 11:08 propoxyphene napsylate Allergy Unknown Verified 01/31/24 11:08 [From Darvocet-N 100] morphine AdvReac Nausea & Verified 01/31/24 11:08 Vomiting shellfish derived [Shellfish] AdvReac Anaphylaxis Verified 01/31/24 11:08 topiramate [From Topamax] AdvReac KIDNEY Verified 01/31/24 11:08 STONES Review of Systems ROS Statement: Those systems with pertinent positive or pertinent negative responses have been documented in the HPI. ROS Other: All systems not noted in ROS Statement are negative. Constitutional: Denies: fever, chills Respiratory: Denies: cough, dyspnea Cardiovascular: Denies: chest pain, palpitations Gastrointestinal: Reports: abdominal pain, nausea. Denies: vomiting, diarrhea, melena, hematochezia Genitourinary: Denies: dysuria, frequency, hematuria Musculoskeletal: Denies: back pain Skin: Denies: rash Neurological: Denies: headache, weakness Past Medical History Past Medical History: Blood Disorder, Diabetes Mellitus, Sleep Apnea/CPAP/BIPAP, Thyroid Disorder Additional Past Medical History / Comment(s): neuropathy. hx. of multiple kidney stones. chronic anemia History of Any Multi-Drug Resistant Organisms: None Reported Past Surgical History: Appendectomy, Bariatric Surgery, Cholecystectomy, Hernia Repair, Hysterectomy Additional Past Surgical History / Comment(s): Percutaneous Nephro Lithotomy. [place] teeth extraction under general anesthesia, ureter stent placement. Bowel Resection - Mar 2023 , colonoscopy. RYGB 20 years ago Additional Past Anesthesia/Blood Transfusion Reaction / Comment(s): SHE STATES SHE "CODED" DURING ORAL SURGERY BECAUSE OF AN ANESTHETIC. no supriya during procedures, no blood transfusion Past Psychological History: Depression Smoking Status: Never smoker Past Alcohol Use History: None Reported Past Drug Use History: None Reported - Past Family History Father Family Medical History: AICD/Pacemaker, Deep Vein Thrombosis (DVT), Pulmonary Embolus Mother Family Medical History: Congestive Heart Failure (CHF) Brother(s) Family Medical History: AICD/Pacemaker General Exam Limitations: no limitations General appearance: alert, in no apparent distress Head exam: Present: atraumatic, normocephalic Eye exam: Present: normal appearance. Absent: scleral icterus, conjunctival injection ENT exam: Present: normal oropharynx Neck exam: Present: normal inspection Respiratory exam: Present: normal lung sounds bilaterally. Absent: respiratory distress, wheezes, rales, rhonchi, stridor Cardiovascular Exam: Present: regular rate, normal rhythm, normal heart sounds. Absent: systolic murmur, diastolic murmur, rubs, gallop GI/Abdominal exam: Present: soft, tenderness, hernia. Absent: distended, guarding, rebound, rigid Extremities exam: Present: normal inspection, normal capillary refill. Absent: pedal edema, calf tenderness Back exam: Present: normal inspection. Absent: CVA tenderness (R), CVA tenderness (L) Neurological exam: Present: alert Skin exam: Present: warm, dry, intact, normal color. Absent: rash Course Vital Signs 01/30/24 01/30/24 01/31/24 19:50 22:53 00:03 Temperature 98.0 F Pulse Rate 76 74 74 Respiratory 19 18 18 Rate Blood Pressure 180/99 167/96 156/98 O2 Sat by Pulse 96 99 100 Oximetry Medical Decision Making - Medical Decision Making The patient had CT scan of the abdomen which I interpreted to show incarcerated ventral hernia. Was pt. sent in by a medical professional or institution (, PA, [employer] CONSULTANT, urgent care, hospital, or penitentiary...) When possible be specific @ -[No] Did you speak to anyone other than the patient for history (EMS, parent, family, police, friend...)? What history was obtained from this source @ -[No] Did you review nursing and triage notes (agree or disagree)? Why? @ -[I reviewed and agree with nursing and triage notes] Were old charts reviewed (outside hosp., previous admission, EMS record, old EKG, old radiological studies, urgent care reports/EKG's, penitentiary records)? Report findings @ -[No old charts were reviewed] Differential Diagnosis (chest pain, altered mental status, abdominal pain women, abdominal pain men, vaginal bleeding, weakness, fever, dyspnea, syncope, headache, dizziness, GI bleed, back pain, seizure, CVA, palpatations, mental health, musculoskeletal)? @ -[Differential Abdominal Pain Women: Appendicitis, Cholecystitis, diverticulosis, ischemic bowel, pancreatitis, hepatitis, UTI, gastroenteritis, AAA, incarcerated hernia, bowel obstruction, constipation, inflammatory bowel, hepatitis, peptic ulcer disease, splenic infarction, perforated viscus, vulvitis, ovarian torsion, PID, kidney stone, p lacenta abruption, this is not meant to be an all-inclusive list EKG interpreted by me (3pts min.). @ -[As above] X-rays interpreted by me (1pt min.). @ -[None done] CT interpreted by me (1pt min.). @ -[I interpreted as above U/S interpreted by me (1pt. min.). @ -[None done] What testing was considered but not performed or refused? (CT, X-rays, U/S, labs)? Why? @ -[None] What meds were considered but not given or refused? Why? @ -[None] Did you discuss the management of the patient with other professionals (professionals i.e. , PA, [employer] CONSULTANT, lab, RT, psych nurse, nephrology social worker, benefits analyst, teacher, community service officer, egg caser)? Give summary @ -[No] Was smoking cessation discussed for >3mins.? @ -[No] Was critical care preformed (if so, how long)? @ -[No] Were there social determinants of health that impacted care today? How? (Homelessness, low income, unemployed, alcoholism, drug addiction, transportation, low edu. Level, literacy, decrease access to med. care, care home, rehab)? @ -[No] Was there de-escalation of care discussed even if they declined (Discuss DNR or withdrawal of care, Hospice)? DNR status @ -[No] What co-morbidities impacted this encounter? (DM, HTN, Smoking, COPD, CAD, Cancer, CVA, ARF, Chemo, Hep., AIDS, mental health diagnosis, sleep apnea, morbid obesity)? @ -[History of previous hernia and gastric bypass surgery Was patient admitted / discharged? Hospital course, mention meds given and route, prescriptions, significant lab abnormalities, going to OR and other pertinent info. @ -[Patient is 63-year-old woman with abdominal pain, found to have incarc erated hernia. Patient is admitted and will have surgical consultation Undiagnosed new problem with uncertain prognosis? @ -[No] Drug Therapy requiring intensive monitoring for toxicity (Heparin, Nitro, Insulin, Cardizem)? @ -[No] Were any procedures done? @ -[No] Diagnosis/symptom? @ -[Incarcerated hernia Small bowel obstruction Acute, or Chronic, or Acute on Chronic? @ -[Acute Uncomplicated (without systemic symptoms) or Complicated (systemic symptoms)? @ -[Uncomplicated Side effects of treatment? @ -[No] Exacerbation, Progression, or Severe Exacerbation? @ -[No] Poses a threat to life or bodily function? How? (Chest pain, [place], [place], pneumonia, PE, COPD, DKA, ARF, appy, cholecystitis, CVA, Diverticulitis, Homicidal, Suicidal, threat to staff... and all critical care pts) @ -[Yes - Lab Data Result diagrams: 02/02/24 06:10 02/03/24 05:15 Lab Results 01/30/24 01/30/24 01/30/24 Range/Units 20:24 20:24 20:24 WBC 13.2 H (3.8-10.6) k/uL RBC 5.51 H (3.80-5.40) m/uL Hgb 13.9 (11.4-16.0) gm/dL Hct 45.8 (34.0-46.0) % MCV 83.2 (80.0-100.0) fL MCH 25.3 (25.0-35.0) pg MCHC 30.4 L (31.0-37.0) g/dL RDW 14.1 (11.5-15.5) % Plt Count 327 (150-450) k/uL MPV 8.7 Neutrophils % 92 % Lymphocytes % 3 % Monocytes % 4 % Eosinophils % 0 % Basophils % 0 % Neutrophils # 12.2 H (1.3-7.7) k/uL Lymphocytes # 0.4 L (1.0-4.8) k/uL Monocytes # 0.5 (0-1.0) k/uL Eosinophils # 0.0 (0-0.7) k/uL Basophils # 0.0 (0-0.2) k/uL Hypochromasia Slight Sodium 139 (137-145) mmol/L Potassium 4.9 (3.5-5.1) mmol/L Chloride 103 (98-107) mmol/L Carbon Dioxide 25 (22-30) mmol/L Anion Gap 11 mmol/L BUN 26 H (7-17) mg/dL Creatinine 1.46 H (0.52-1.04) mg/dL Est GFR (CKD-EPI)AfAm 45 (>60 ml/min/1.73 sqM) Est GFR (CKD-EPI)NonAf 39 (>60 ml/min/1.73 sqM) Glucose 110 H (74-99) mg/dL Plasma Lactic Acid Praful 1.0 (0.7-2.0) mmol/L Calcium 9.8 (8.4-10.2) mg/dL Total Bilirubin 1.3 (0.2-1.3) mg/dL AST 39 H (14-36) U/L ALT 24 (4-34) U/L Alkaline Phosphatase 95 (38-126) U/L Total Protein 7.2 (6.3-8.2) g/dL Albumin 4.7 (3.5-5.0) g/dL Amylase 60 (30-110) U/L Lipase 167 (23-300) U/L Urine Color Urine Appearance (Clear) Urine pH (5.0-8.0) Ur Specific [place] (1.001-1.035) Urine Protein (Negative) Urine Glucose (UA) (Negative) Urine Ketones (Negative) Urine Blood (Negative) Urine Nitrite (Negative) Urine Bilirubin (Negative) Urine Urobilinogen (<2.0) mg/dL Ur Leukocyte Esterase (Negative) Urine RBC (0-5) /hpf Urine WBC (0-5) /hpf Ur Squamous Epith Cells (0-4) /hpf Urine Mucus (None) /hpf 01/30/24 Range/Units 20:55 WBC (3.8-10.6) k/uL RBC (3.80-5.40) m/uL Hgb (11.4-16.0) gm/dL Hct (34.0-46.0) % MCV (80.0-100.0) fL MCH (25.0-35.0) pg MCHC (31.0-37.0) g/dL RDW (11.5-15.5) % Plt Count (150-450) k/uL MPV Neutrophils % % Lymphocytes % % Monocytes % % Eosinophils % % Basophils % % Neutrophils # (1.3-7.7) k/uL Lymphocytes # (1.0-4.8) k/uL Monocytes # (0-1.0) k/uL Eosinophils # (0-0.7) k/uL Basophils # (0-0.2) k/uL Hypochromasia Sodium (137-145) mmol/L Potassium (3.5-5.1) mmol/L Chloride (98-107) mmol/L Carbon Dioxide (22-30) mmol/L Anion Gap mmol/L BUN (7-17) mg/dL Creatinine (0.52-1.04) mg/dL Est GFR (CKD-EPI)AfAm (>60 ml/min/1.73 sqM) Est GFR (CKD-EPI)NonAf (>60 ml/min/1.73 sqM) Glucose (74-99) mg/dL Plasma Lactic Acid Praful (0.7-2.0) mmol/L Calcium (8.4-10.2) mg/dL Total Bilirubin (0.2-1.3) mg/dL AST (14-36) U/L ALT (4-34) U/L Alkaline Phosphatase (38-126) U/L Total Protein (6.3-8.2) g/dL Albumin (3.5-5.0) g/dL Amylase (30-110) U/L Lipase (23-300) U/L Urine Color Yellow Urine Appearance Clear (Clear) Urine pH 5.5 (5.0-8.0) Ur Specific [place] 1.023 (1.001-1.035) Urine Protein 1+ H (Negative) Urine Glucose (UA) Negative (Negative) Urine Ketones 3+ H (Negative) Urine Blood Negative (Negative) Urine Nitrite Negative (Negative) Urine Bilirubin 1+ H (Negative) Urine Urobilinogen 3.0 (<2.0) mg/dL Ur Leukocyte Esterase Large H (Negative) Urine RBC 4 (0-5) /hpf Urine WBC 21 H (0-5) /hpf Ur Squamous Epith Cells <1 (0-4) /hpf Urine Mucus Rare H (None) /hpf Disposition Clinical Impression: Incarcerated hernia Disposition: ADMITTED IP TO THIS [facility] Condition: Fair Is patient prescribed a controlled substance at d/c from ED?: No
[2024-01-30] MEDS: LOSARTAN 25 MG TAB PO STA (23:59)
[2024-01-30] MEDS: ATORVASTATIN 20 MG TAB PO STA (23:59)
[2024-01-31] MEDS: ONDANSETRON 4 MG/2 ML VIAL IVP PRN (04:04)
[2024-01-31] MEDS: LEVOTHYROXINE 75 MCG TAB PO SCH (06:44)
--- NOTE | 2024-01-31 08:50 | P.GSHP ---
History of Present Illness H&P Date: 01/31/24 CHIEF COMPLAINT: Abdominal pain HISTORY OF PRESENT ILLNESS: The patient is a 63-year-old female with history of Tracey-en-Y gastric bypass over 20 years ago who presents with 2-day history of pain and swelling of the lower abdomen. She has pre-existing history of a ventral hernia repair performed urgently 1 year ago February 2023. Patient is being followed at bariatric center for any recurrence. Patient was doing well until she started lifting as she was moving from home to home. She has noticed new swelling and pain in the last 2 to 3 days. She reports severe abdominal pain with intractable nausea and vomiting. Patient presented to the emergency room. History obtained via telehealth discussion with patient. PAST MEDICAL HISTORY: See list and reviewed PAST SURGICAL HISTORY: See list and reviewed MEDICATIONS: See list and reviewed ALLERGIES: See list and reviewed SOCIAL HISTORY: See list and reviewed FAMILY HISTORY: See list and reviewed REVIEW OF ORGAN SYSTEMS: CONSTITUTIONAL: No fevers or chills. Intentional weight loss and gastric bypass. EYES: Denies any trouble with vision. No glasses. HEENT: No difficulties with hearing. No nosebleeds. No difficulty swallowing. RESPIRATORY: Obstructive sleep apnea. CARDIOVASCULAR: Hypertensive heart disease. Has congestive heart failure. Recent cardiac risk assessment February 2023. GASTROINTESTINAL: History of gastric bypass with prior small bowel resection due to bowel obstruction from prior incisional hernia. GENITOURINARY: History of kidney stones NEUROLOGICAL: Has neuropathy. MUSCULOSKELETAL: Denies any back pain, stiffness or joint arthritis. SKIN: No current skin cancer. No rash. PSYCHIATRIC: Has depressive disorder. ENDOCRINE: Hypothyroidism. Diabetes type 2 HEME/LYMPHATIC: Has chronic anemia. ALLERGY/IMMUNOLOGY: No immunoglobulin therapy. No immune deficiencies. BREAST: Denies current breast lumps, pain or nipple discharge. PHYSICAL EXAM: VITALS: Reviewed ABDOMEN: Per patient, generalized abdominal pain via telehealth. CLINCAL LABS: Reviewed. WBC elevated 13.2. Hemoglobin 13.9 secondary h emoconcentration, baseline 12.9. Creatinine elevated 1.46 from baseline 0.93 from February 2023. IMAGING: Independently reviewed. CT of the abdomen pelvis independently reviewed demonstrates moderate dilation of Tracey limb and colon biliopancreatic limb and small bowel dilation with transition point at incarcerated incisional hernia. Distal bowel decompressed. Features consistent with incarcerated small bowel obstruction due to ventral hernia. This is my independent interpretation. RADIOLOGY: Report reviewed CT abdomen pelvis demonstrates loop of bowel incarcerated from ventral hernia. RECORDS: previous old records reviewed ASSESSMENT: 1. Abdominal pain due to incarcerated ventral hernia with bowel obstruction 2. History of gastric bypass 3. Hypertensive heart disease with congestive heart failure 4. Hypothyroidism 5. Depressive disorder 6. Dehydration 7. Acute kidney injury secondary to dehydration PLAN: 1. IV fluid hydration. Additional 2 L normal saline bolus ordered for dehydration secondary to hemoconcentration and elevated creatinine 2. Placement of nasogastric tube described due to chronic nausea and features of bowel obstruction. In light of patient's gastric bypass and symptoms nasogastric tube decompression will be of benefit. 3. May have ice chips popsicles 4. Medicine consultation for medical management 5. Inpatient hospitalization for incarcerated incisional hernia with bowel obstruction described. Inpatient hospitalization greater than 2 nights described. 6. Due to pre-existing history of open incisional hernia risk for adhesions, minimal invasive approach may be of benefit after gastric decompression. 7. Patient notified that on-call surgeon covering with telehealth performed and discussion with nurse and care plan reviewed. 8. Recommend medical optimization prior to surgery ADVANCE DIRECTIVE: CODE STATUS in chart. Past Medical History Past Medical History: Blood Disorder, Diabetes Mellitus, Sleep Apnea/CPAP/BIPAP, Thyroid Disorder Additional Past Medical History / Comment(s): neuropathy. hx. of multiple kidney stones. chronic anemia History of Any Multi-Drug Resistant Organisms: None Reported Past Surgical History: Appendectomy, Bariatric Surgery, Cholecystectomy, Hernia Repair, Hysterectomy Additional Past Surgical History / Comment(s): Percutaneous Nephro Lithotomy. [place] teeth extraction under general anesthesia, ureter stent placement. Bowel Resection - Mar 2023 secondary to incarcerated hernia, colonoscopy. RYGB 20 years ago Additional Past Anesthesia/Blood Transfusion Reaction / Comment(s): SHE STATES SHE "CODED" DURING ORAL SURGERY BECAUSE OF AN ANESTHETIC. no supriya during procedures, no blood transfusion Past Psychological History: Depression Smoking Status: Never smoker Past Alcohol Use History: None Reported Past Drug Use History: None Reported - Past Family History Father Family Medical History: AICD/Pacemaker, Deep Vein Thrombosis (DVT), Pulmonary Embolus Mother Family Medical History: Congestive Heart Failure (CHF) Brother(s) Family Medical History: AICD/Pacemaker Medications and Allergies Home Medications Medication Instructions Recorded Confirmed Type Furosemide [Lasix] 20 mg PO Q2D 03/03/15 09/25/23 History Levothyroxine Sodium [Synthroid] 75 mcg PO DAILY 03/03/15 09/25/23 History Losartan [Cozaar] 25 mg PO HS 03/03/15 09/25/23 History Potassium Citrate [Urocit-K] 20 meq PO BID 07/13/20 09/25/23 History Tirzepatide [Mounjaro] 5 mg SQ SA 01/22/23 09/25/23 History Atorvastatin [Lipitor] 10 mg PO HS 03/26/23 09/25/23 History buPROPion XL [Wellbutrin XL] 300 mg PO DAILY 03/26/23 09/25/23 History Acetaminophen Tab [Tylenol] 1,000 mg PO Q6HR PRN #30 tablet 03/29/23 09/25/23 Rx Magnesium Chloride [Slow-Mag] 64 mg PO HS 04/18/23 09/25/23 History Cyanocobalamin (Vitamin B-12) 1,000 mg PO DAILY 07/10/23 09/25/23 History [Vitamin B-12] Gabapentin 300 mg PO HS 07/10/23 09/25/23 History Venofer 1 injection IV DIRECTED 07/10/23 09/25/23 History Vitamin B Complex 1 each PO DAILY 07/10/23 09/25/23 History Biotin [Zgoi-Rjqv-Ybqln] 10,000 mcg PO DAILY 09/25/23 History Cholecalciferol [Vitamin D3 (25 25 mcg PO DAILY 09/25/23 History Mcg = 1000 Iu)] Allergies Allergy/AdvReac Type Severity Reaction Status Date / Time bupivacaine HCl Allergy Severe Anaphylaxis Verified 01/30/24 19:49 [From Marcaine] lidocaine Allergy Anaphylaxis Verified 01/30/24 19:49 lisinopril Allergy THROAT Verified 01/30/24 19:49 SWELLING Penicillins Allergy Anaphylaxis Verified 01/30/24 19:49 propoxyphene napsylate Allergy Unknown Verified 01/30/24 19:49 [From Darvocet-N 100] morphine AdvReac Nausea & Verified 01/30/24 19:49 Vomiting shellfish derived [Shellfish] AdvReac Anaphylaxis Verified 01/30/24 19:49 topiramate [From Topamax] AdvReac KIDNEY Verified 01/30/24 19:49 STONES Surgical - Exam Vital Signs Temp Pulse Resp BP Pulse Ox 98.0 F 76 19 180/99 96 01/30/24 19:50 01/30/24 19:50 01/30/24 19:50 01/30/24 19:50 01/30/24 19:50 Results - Labs 01/30/24 20:24 01/30/24 20:24 Abnormal Lab Results - Last 24 Hours (Table) 01/30/24 01/30/24 01/30/24 Range/Units 20:24 20:24 20:55 WBC 13.2 H (3.8-10.6) k/uL RBC 5.51 H (3.80-5.40) m/uL MCHC 30.4 L (31.0-37.0) g/dL Neutrophils # 12.2 H (1.3-7.7) k/uL Lymphocytes # 0.4 L (1.0-4.8) k/uL BUN 26 H (7-17) mg/dL Creatinine 1.46 H (0.52-1.04) mg/dL Glucose 110 H (74-99) mg/dL AST 39 H (14-36) U/L Urine Protein 1+ H (Negative) Urine Ketones 3+ H (Negative) Urine Bilirubin 1+ H (Negative) Ur Leukocyte Esterase Large H (Negative) Urine WBC 21 H (0-5) /hpf Urine Mucus Rare H (None) /hpf Diabetes panel 01/30/24 Range/Units 20:24 Sodium 139 (137-145) mmol/L Potassium 4.9 (3.5-5.1) mmol/L Chloride 103 (98-107) mmol/L Carbon Dioxide 25 (22-30) mmol/L BUN 26 H (7-17) mg/dL Creatinine 1.46 H (0.52-1.04) mg/dL Glucose 110 H (74-99) mg/dL Calcium 9.8 (8.4-10.2) mg/dL AST 39 H (14-36) U/L ALT 24 (4-34) U/L Alkaline Phosphatase 95 (38-126) U/L Total Protein 7.2 (6.3-8.2) g/dL Albumin 4.7 (3.5-5.0) g/dL Calcium panel 01/30/24 Range/Units 20:24 Calcium 9.8 (8.4-10.2) mg/dL Albumin 4.7 (3.5-5.0) g/dL Pituitary panel 01/30/24 Range/Units 20:24 Sodium 139 (137-145) mmol/L Potassium 4.9 (3.5-5.1) mmol/L Chloride 103 (98-107) mmol/L Carbon Dioxide 25 (22-30) mmol/L BUN 26 H (7-17) mg/dL Creatinine 1.46 H (0.52-1.04) mg/dL Glucose 110 H (74-99) mg/dL Calcium 9.8 (8.4-10.2) mg/dL Adrenal panel 01/30/24 Range/Units 20:24 Sodium 139 (137-145) mmol/L Potassium 4.9 (3.5-5.1) mmol/L Chloride 103 (98-107) mmol/L Carbon Dioxide 25 (22-30) mmol/L BUN 26 H (7-17) mg/dL Creatinine 1.46 H (0.52-1.04) mg/dL Glucose 110 H (74-99) mg/dL Calcium 9.8 (8.4-10.2) mg/dL Total Bilirubin 1.3 (0.2-1.3) mg/dL AST 39 H (14-36) U/L ALT 24 (4-34) U/L Alkaline Phosphatase 95 (38-126) U/L Total Protein 7.2 (6.3-8.2) g/dL Albumin 4.7 (3.5-5.0) g/dL
[2024-01-31] MEDS: METOCLOPRAMIDE 5 MG/ML 2 ML VIAL IVP SCH (08:55)
[2024-01-31] MEDS: PANTOPRAZOLE 40 MG/10 ML VIAL IV SCH (08:55)
[2024-01-31] MEDS: SODIUM CHLORIDE 0.9% 2,000 ML IV ONE (08:56)
[2024-01-31 11:46] LABS: Glucose,Whole Blood 121 mg/dL (70-110)
--- NOTE | 2024-01-31 12:18 | XR ---
EXAMINATION TYPE: XR chest 1V confirm line plcmt DATE OF EXAM: 01/31/2024 11:33 AM CLINICAL INDICATION:Female, 63 years old with history of NG tube placement; [facility] COMPARISON: Chest radiographs from 01/29/2023 TECHNIQUE: XR chest 1V confirm line plcmt Frontal view of the chest. FINDINGS: Lungs/Pleura: There is no evidence of pleural effusion, focal consolidation, or pneumothorax. Pulmonary vascularity: Unremarkable. Heart/mediastinum: Cardiomediastinal silhouette is unremarkable. Musculoskeletal: No acute osseous pathology. Other findings: None Nasogastric tube terminating near the gastroesophageal junction. IMPRESSION: 1. Nasogastric tube side-port terminates in the esophagus, advancement of 10 cm is recommended for o ptimal placement. 2. No acute cardiopulmonary disease/process.
[2024-01-31] MEDS: ONDANSETRON 4 MG/2 ML VIAL IVP SCH (13:51)
[2024-01-31] MEDS: KETOROLAC 15 MG/ML 1 ML VIAL IVP PRN (14:42)
--- NOTE | 2024-01-31 16:11 | P.CONS ---
History of Present Illness - Reason for Consult Consult date: 01/31/24 - Chief Complaint medical consult - History of Present Illness 63-year-old woman with medical history of hypertension, depression, hypothyroidism, history of gastric bypass presenting for evaluation of incarcerated ventral hernia with bowel obstruction. Medicine is consulted by primary surgical service for medical management. Patient is reporting some abdominal pain, nausea, vomiting. She reports she has not had a bowel movement in more than 24 hours, is not passing gas. For my understanding of the surgical plan, patient is due to have an NG tube with attempt at reduction of hernia foll owing placement of NG tube, however, if this is not successful, patient will go to the operating room tomorrow morning. Patient denies fevers, does report chills, sweats. She reports abdominal pain, nausea, vomiting. She denies chest pain, palpitations. Upon evaluation, patient was afebrile, 154/90, heart rate 81, 98% on room air. CBC demonstrates leukocytosis to 13.2 which is predominantly neutrophils. Basic metabolic panel shows a BUN of 26, creatinine of 1.46. Liver function test shows mild elevation of AST at 39, otherwise unremarkable. UA shows 1+ protein, 3+ ketones, 1+ bilirubin, large leukocyte esterase, 21 white blood cells. Abdomen/pelvis CT shows small bowel obstruction secondary to ventral wall hernia containing loop of small bowel, as well as indeterminate area of right hepatic lobe seen as a similar finding on 12/27/2022. EKG demonstrates normal sinus rhythm with premature atrial complexes. Chest x-ray demonstrates nasogastric tube placed in the proximal stomach just past the gastro esophageal junction. All Systems reviewed and pertinent positives and negatives noted in HPI, all other symptoms are negative Gen: In NAD, non-toxic HEENT: normocephalic, atraumatic, hearing acuity is intant, mucous membranes moist CVS: perfusing all extremities well, no pitting edema, Respiratory: symmetric chest expansion, no accessory muscle use, GI: soft, NTTP, ND, : no suprapubic tenderness, no CVA tenderness MSK/Derm: no rashes, cyanosis Neuro: CN II-XII intact, no motor weakness, Psych: cooperative, euthymic mood, judgment and insight is intact Labs and imaging as above Assessment/plan: Incarcerated ventral hernia Hypothyroidism Hypertension Hyperlipidemia Diabetes type 2 Depression Hypothyroidism History of gastric bypass Plan: Resume home Wellbutrin, gabapentin, levothyroxine, losartan The combination of Wellbutrin and Reglan increase the risk of neuroleptic malignant syndrome, monitor closely, limit duration of this combination as able Resume home vitamin B complex, B12, vitamin D Hold home Lasix, magnesium, potassium Resume home Lipitor Hold home tirzepatide Check sugars every 6 hours while NPO Initiate low-dose sliding scale every 6 hours while NPO NG tube management per primary team Past Medical History Past Medical History: Blood Disorder, Diabetes Mellitus, Sleep Apnea/CPAP/BIPAP, Thyroid Disorder Additional Past Medical History / Comment(s): neuropathy. hx. of multiple kidney stones. chronic anemia History of Any Multi-Drug Resistant Organisms: None Reported Past Surgical History: Appendectomy, Bariatric Surgery, Cholecystectomy, Hernia Repair, Hysterectomy Additional Past Surgical History / Comment(s): Percutaneous Nephro Lithotomy. [place] teeth extraction under general anesthesia, ureter stent placement. Bowel Resection - Mar 2023 secondary to incarcerated hernia, colonoscopy. RYGB 20 years ago Additional Past Anesthesia/Blood Transfusion Reaction / Comm: SHE STATES SHE "CODED" DURING ORAL SURGERY BECAUSE OF AN ANESTHETIC. no supriya during procedures, no blood transfusion Past Psychological History: Depression Smoking Status: Never smoker Past Alcohol Use History: None Reported Past Drug Use History: None Reported - Past Family History Father Family Medical History: AICD/Pacemaker, Deep Vein Thrombosis (DVT), Pulmonary Embolus Mother Family Medical History: Congestive Heart Failure (CHF) Brother(s) Family Medical History: AICD/Pacemaker Medications and Allergies Home Medications Medication Instructions Recorded Confirmed Type Furosemide [Lasix] 20 mg PO MOFR 03/03/15 01/31/24 History Levothyroxine Sodium [Synthroid] 75 mcg PO DAILY 03/03/15 01/31/24 History Losartan [Cozaar] 25 mg PO HS 03/03/15 01/31/24 History Tirzepatide [Mounjaro] 5 mg SQ SA 01/22/23 01/31/24 History Atorvastatin [Lipitor] 10 mg PO HS 03/26/23 01/31/24 History buPROPion XL [Wellbutrin XL] 300 mg PO DAILY 03/26/23 01/31/24 History Cyanocobalamin (Vitamin B-12) 1,000 mg PO DAILY 07/10/23 01/31/24 History [Vitamin B-12] Gabapentin 300 mg PO HS 07/10/23 01/31/24 History Vitamin B Complex 1 cap PO DAILY 07/10/23 01/31/24 History Cholecalciferol [Vitamin D3 (125 125 mcg PO DAILY 01/31/24 01/31/24 History Mcg = 5000 Iu)] Magnesium 250 mg PO HS 01/31/24 01/31/24 History Potassium Citrate [Potassium 20 meq PO BID 01/31/24 01/31/24 History Citrate ER] Allergies Allergy/AdvReac Type Severity Reaction Status Date / Time bupivacaine HCl Allergy Severe Anaphylaxis Verified 01/31/24 11:08 [From Marcaine] lidocaine Allergy Anaphylaxis Verified 01/31/24 11:08 lisinopril Allergy THROAT Verified 01/31/24 11:08 SWELLING Penicillins Allergy Anaphylaxis Verified 01/31/24 11:08 propoxyphene napsylate Allergy Unknown Verified 01/31/24 11:08 [From Darvocet-N 100] morphine AdvReac Nausea & Verified 01/31/24 11:08 Vomiting shellfish derived [Shellfish] AdvReac Anaphylaxis Verified 01/31/24 11:08 topiramate [From Topamax] AdvReac KIDNEY Verified 01/31/24 11:08 STONES Physical Exam Osteopathic Statement: *. No significant issues noted on an osteopathic structural exam other than those noted in the History and Physical/Consult. Vitals: Vital Signs Temp Pulse Pulse Resp BP BP Pulse Ox 01/31/24 14:00 97.7 F 81 17 154/90 98 01/31/24 08:00 74 18 01/31/24 07:25 98.2 F 74 18 157/90 94 L 01/31/24 02:00 98 F 73 152/93 98 01/31/24 01:07 98 F 73 152/93 98 01/31/24 00:03 74 18 156/98 100 01/30/24 22:53 74 18 167/96 99 01/30/24 19:50 98.0 F 76 19 180/99 96 Intake and Output 01/31/24 01/31/24 01/31/24 06:59 14:59 22:59 Other: Weight 88.451 kg Results CBC & Chem 7: 01/30/24 20:24 01/30/24 20:24 Labs: Abnormal Lab Results - Last 24 Hours (Table) 01/30/24 01/30/24 01/30/24 Range/Units 20:24 20:24 20:55 WBC 13.2 H (3.8-10.6) k/uL RBC 5.51 H (3.80-5.40) m/uL MCHC 30.4 L (31.0-37.0) g/dL Neutrophils # 12.2 H (1.3-7.7) k/uL Lymphocytes # 0.4 L (1.0-4.8) k/uL BUN 26 H (7-17) mg/dL Creatinine 1.46 H (0.52-1.04) mg/dL Glucose 110 H (74-99) mg/dL POC Glucose (mg/dL) (70-110) mg/dL AST 39 H (14-36) U/L Urine Protein 1+ H (Negative) Urine Ketones 3+ H (Negative) Urine Bilirubin 1+ H (Negative) Ur Leukocyte Esterase Large H (Negative) Urine WBC 21 H (0-5) /hpf Urine Mucus Rare H (None) /hpf 01/31/24 Range/Units 11:45 WBC (3.8-10.6) k/uL RBC (3.80-5.40) m/uL MCHC (31.0-37.0) g/dL Neutrophils # (1.3-7.7) k/uL Lymphocytes # (1.0-4.8) k/uL BUN (7-17) mg/dL Creatinine (0.52-1.04) mg/dL Glucose (74-99) mg/dL POC Glucose (mg/dL) 121 H (70-110) mg/dL AST (14-36) U/L Urine Protein (Negative) Urine Ketones (Negative) Urine Bilirubin (Negative) Ur Leukocyte Esterase (Negative) Urine WBC (0-5) /hpf Urine Mucus (None) /hpf
[2024-01-31 16:56] LABS: Glucose,Whole Blood 124 mg/dL (70-110)
[2024-01-31] MEDS: ENOXAPARIN 30 MG/0.3 ML SYRINGE SQ SCH (17:08)
--- NOTE | 2024-01-31 18:32 | P.PN ---
Progress Note - Text Progress Note Date: 01/31/24 CHIEF COMPLAINT: Abdominal Pain HISTORY OF PRESENT ILLNESS: NAEO ROS: No fevers or chills. No new chest pain. +Abdominal Pain , PHYSICAL EXAM: VITAL SIGNS: Reviewed CONSTITUTIONAL: Well developed and in no acute distress. Abdomen-soft, ND, diffuse TTP CLINICAL LABS: Reviewed. ASSESSMENT: 1. Abdominal pain due to incarcerated ventral hernia with bowel obstruction 2. History of gastric bypass 3. Hypertensive heart disease with congestive heart failure 4. Hypothyroidism 5. Depressive disorder 6. Dehydration 7. Acute kidney injury secondary to dehydration PLAN: 1. NPO 2. OR 01/[address] Valentin for surgical intervention 3. AM labs 4. Pain Control
[2024-01-31 20:56] LABS: Glucose,Whole Blood 105 mg/dL (70-110)
[2024-01-31] MEDS: ATORVASTATIN 10 MG TAB PO SCH (21:52)
[2024-01-31] MEDS: GABAPENTIN 300 MG CAP PO SCH (21:52)
[2024-01-31] MEDS: LOSARTAN 25 MG TAB PO SCH (21:52)
[2024-02-01] MEDS: ONDANSETRON 4 MG/2 ML VIAL IVP SCH (02:33)
[2024-02-01 05:19] LABS: Basophils % (A) 0 %; Eosinophils % (A) 0 %; HCT 49.3 % (34.0-46.0); HGB 14.7 gm/dL (11.4-16.0); Hypochromasia Moderate; Lymphocytes # (A) 0.6 k/uL (1.0-4.8); Lymphocytes % (A) 4 %; MCH 25.1 pg (25.0-35.0); MCHC 29.8 g/dL (31.0-37.0); MCV 84.2 fL (80.0-100.0); Mean Platelet Volume 9.1; Monocytes # (A) 1.6 k/uL (0-1.0); Monocytes % (A) 10 %; Neutrophils # (A) 13.2 k/uL (1.3-7.7); Neutrophils % (A) 84 %; Platelet Count 365 k/uL (150-450); RBC 5.86 m/uL (3.80-5.40); RDW 14.1 % (11.5-15.5); WBC 15.7 k/uL (3.8-10.6)
[2024-02-01 05:29] LABS: ALT 19 U/L (4-34); AST 27 U/L (14-36); African American GFR (CKD) 40 (>60 ml/min/1.73 sqM); Albumin 3.6 g/dL (3.5-5.0); Albumin/Globulin Ratio 1.8; Alkaline Phosphatase 82 U/L (38-126); Anion Gap 10 mmol/L; Blood Urea Nitrogen 52 mg/dL (7-17); Calcium 9.1 mg/dL (8.4-10.2); Carbon Dioxide 23 mmol/L (22-30); Chloride 106 mmol/L (98-107); Glucose 127 mg/dL (74-99); Non-African American GFR(CKD) 35 (>60 ml/min/1.73 sqM); Potassium 5.2 mmol/L (3.5-5.1); Sodium 139 mmol/L (137-145); Total Bilirubin 0.6 mg/dL (0.2-1.3); Total Protein 5.6 g/dL (6.3-8.2)
[2024-02-01 06:07] LABS: Glucose,Whole Blood 137 mg/dL (70-110)
[2024-02-01] MEDS: buPROPion XL 300 MG TAB.ER.24H PO SCH (07:35)
[2024-02-01] MEDS: CYANOCOBALAMIN 500 MCG TAB PO SCH (07:35)
[2024-02-01] MEDS: CHOLECALCIFEROL 125 MCG (5000 IU) TABLET PO SCH (07:35)
--- NOTE | 2024-02-01 08:44 | P.PN ---
Subjective Progress Note Date: 02/01/24 CHIEF COMPLAINT: Abdominal pain HISTORY OF PRESENT ILLNESS: The patient is a 63-year-old female with history of Tracey-en-Y gastric bypass over 20 years ago who presents with acute swelling and abdominal pain consistent with incarcerated ventral hernia. Patient had nasogastric tube placement with gastric decompression. "I do not feel good." She is not passing flatus. She still reports abdominal soreness. REVIEW OF ORGAN SYSTEMS: CONSTITUTIONAL: No fevers or chills. Intentional weight loss and gastric bypass. CARDIOVASCULAR: Hypertensive heart disease. Has congestive heart failure. Recent cardiac risk assessment February 2023. GASTROINTESTINAL: History of gastric bypass with prior small bowel resection due to bowel obstruction from prior incisional hernia. GENITOURINARY: History of kidney stones NEUROLOGICAL: Has neuropathy. HEME/LYMPHATIC: Has chronic anemia. PHYSICAL EXAM: VITALS: Reviewed VITAL SIGNS: Reviewed CONSTITUTIONAL: Well developed and in no acute distress. EYES: Conjuctivae without sclera icterus. Extraocular movements grossly intact. HEAD, EARS, NOSE, THROAT: Moist buccal mucosa. Head is atraumatic, normocephalic. Hears conversational speech. No nasal drainage. Nasogastric tube with gastric contents RESPIRATORY: Non-labored respirations and equal bilateral excursions. CARDIOVASCULAR: Palpable 2+ radial pulses. ABDOMEN: Nondistended. Focal swelling tenderness at the left lateral to midline incision near umbilicus. No skin changes. No peritonitis. MUSCULOSKELETAL: No gross deformity of the lower extremities noted. No clubbing. No cyanosis. SKIN: Good skin turgor. Well perfused. NEUROLOGIC: Cranial nerves II through XII grossly intact. No focal or lateralizing signs. PSYCH: Appropriate affect. Alert and oriented to person, place and time. LABS: Reviewed. WBC elevated 13.2-15.7, leukocytosis. Creatinine elevated 1.4- 1.6 ASSESSMENT: 1. Abdominal pain due to incarcerated ventral hernia with bowel obstruction 2. History of gastric bypass 3. Hypertensive heart disease with congestive heart failure 4. Hypothyroidism 5. Depressive disorder 6. Dehydration 7. Acute kidney injury secondary to dehydration PLAN: 1. Patient clinically reports symptoms have not improved despite gastric decompression. Reduction repair of incarcerated ventral hernia described. Due to her prior gastric bypass and open abdominal surgery, minimally invasive surgery being approached to decrease risk of morbidity. 2. Consultation to nephrology due to acute kidney injury. Will discontinue nephrotoxic agents. 3. Patient is elevated risk for complications due to urgent nature of procedure and pre-existing comorbidities. 4. Shared decision making and care plan reviewed for which patient agreed with surgical intervention. Objective - Vital Signs Vital signs: Vital Signs Temp 98.2 F 02/01/24 01:47 Pulse 56 L 02/01/24 07:35 Resp 18 02/01/24 07:35 BP 145/91 02/01/24 01:47 Pulse Ox 94 L 02/01/24 01:47 FiO2 Intake & Output 01/31/24 02/01/24 02/01/24 18:59 06:59 18:59 Intake Total 1675 Output Total 100 550 Balance 1575 -550 Intake: Intake, IV Titration 1675 Amount Sodium Chloride 0.9% 1, 675 000 ml @ 75 mls/hr IV . [id number] DOUGLAS Rx#:[id number] Sodium Chloride 0.9% 2, 1000 000 ml @ 999 mls/hr IV . Q2H1M ONE Rx#:[id number] Output: Gastric Drainage 100 550 Other: # Voids 2 2 - Labs CBC & Chem 7: 02/01/24 04:30 02/01/24 04:30 Labs: Abnormal Lab Results - Last 24 Hours (Table) 01/31/24 01/31/24 02/01/24 Range/Units 11:45 16:54 04:30 WBC 15.7 H (3.8-10.6) k/uL RBC 5.86 H (3.80-5.40) m/uL Hct 49.3 H (34.0-46.0) % MCHC 29.8 L (31.0-37.0) g/dL Neutrophils # 13.2 H (1.3-7.7) k/uL Lymphocytes # 0.6 L (1.0-4.8) k/uL Monocytes # 1.6 H (0-1.0) k/uL Potassium (3.5-5.1) mmol/L BUN (7-17) mg/dL Creatinine (0.52-1.04) mg/dL Glucose (74-99) mg/dL POC Glucose (mg/dL) 121 H 124 H (70-110) mg/dL Total Protein (6.3-8.2) g/dL 02/01/24 02/01/24 Range/Units 04:30 06:02 WBC (3.8-10.6) k/uL RBC (3.80-5.40) m/uL Hct (34.0-46.0) % MCHC (31.0-37.0) g/dL Neutrophils # (1.3-7.7) k/uL Lymphocytes # (1.0-4.8) k/uL Monocytes # (0-1.0) k/uL Potassium 5.2 H (3.5-5.1) mmol/L BUN 52 H (7-17) mg/dL Creatinine 1.60 H (0.52-1.04) mg/dL Glucose 127 H (74-99) mg/dL POC Glucose (mg/dL) 137 H (70-110) mg/dL Total Protein 5.6 L (6.3-8.2) g/dL
[2024-02-01] MEDS ORDERED: ROCURONIUM 10 MG/ML (5 ML VIAL) IV ONE (08:55)
[2024-02-01] MEDS ORDERED: DEXAMETHASONE SOD PHOSPHATE 4 MG/ML 1 ML VIAL ONE (08:55)
[2024-02-01] MEDS ORDERED: GLYCOPYRROLATE 0.2 MG/ML 2 ML VIAL ONE (08:55)
[2024-02-01] MEDS ORDERED: MIDAZOLAM 2 MG/2 ML VIAL ONE (08:55)
[2024-02-01] MEDS ORDERED: ceFAZolin 1 GM/50 ML BAG (PMX) ONE (08:55)
[2024-02-01] MEDS ORDERED: HYDROmorphone (PF) 1 MG/ML ONE (08:55)
[2024-02-01] MEDS ORDERED: PROPOFOL 10 MG/ML 20 ML VIAL IV ONE (08:55)
[2024-02-01] MEDS ORDERED: KETOROLAC 15 MG/ML 1 ML VIAL ONE (08:55)
[2024-02-01] MEDS ORDERED: SUCCINYLCHOLINE CHLORIDE 200 MG/10 ML VIAL IV ONE (08:55)
[2024-02-01] MEDS ORDERED: ENOXAPARIN 30 MG/0.3 ML SYRINGE SQ ONE (08:55)
[2024-02-01] MEDS ORDERED: fentaNYL (PF) 50 MCG/ML 2 ML AMP ONE (08:55)
[2024-02-01] MEDS ORDERED: ONDANSETRON 4 MG/2 ML VIAL ONE (08:55)
[2024-02-01] MEDS ORDERED: PHENYLEPHRINE-0.9% NACL SYG 1,000 MCG/10 ML SYRINGE ONE (08:55)
[2024-02-01] MEDS ORDERED: NEOSTIGMINE 1 MG/ML 10 ML VIAL ONE (08:55)
[2024-02-01] MEDS: SODIUM CHLORIDE 0.9% 50 ML with ceFAZolin 2,000 MG IV ONE (09:00)
[2024-02-01] MEDS: LACTATED RINGERS 1,000 ML IV ONE (09:00)
[2024-02-01] MEDS ORDERED: NON FORMULARY DRUG (Vitamin B Complex [Vitamin B Complex] 1 EACH Capsule) PO SCH (09:00)
[2024-02-01] MEDS: LACTATED RINGERS 1,000 ML IV SCH (11:07)
[2024-02-01] MEDS ORDERED: HYDROmorphone 1 MG/ML 1 ML SYRINGE IVP PRN (11:29)
--- NOTE | 2024-02-01 11:36 | P.OP ---
Date of Procedure: 02/01/24 Description of Procedure: SURGEON: JEREMY TREVINO MD PREOPERATIVE DIAGNOSES: 1. Recurrent incarcerated incisional hernia with bowel obstruction 2. History of gastric bypass POSTOPERATIVE DIAGNOSES: 1. Recurrent incarcerated incisional hernia with bowel obstruction x 2, 10 x 6 cm 2. History of gastric bypass 3. Internal hernia, left upper quadrant 4. Intra-abdominal adhesions OPERATION: 1. Robotic-assisted da Robbin Xi laparoscopic repair of recurrent incarcerated incisional hernia 5 cm by 3-cm with mesh, ventralight ST mesh 11.4 cm 2. Robotic-assisted da Robbin Xi laparoscopic lysis of adhesions over 1 hour 3. Robotic-assisted da Robbin Xi laparoscopic takedown of internal hernia, left upper quadrant ANESTHESIA: General with local, regional block ESTIMATED BLOOD LOSS: 10 mL. SPECIMENS: Strangulated incisional hernia involving sidewall transverse colon COMPLICATIONS: None. FINDINGS: 1. Recurrent incarcerated incisional hernia, midline incision and umbilicus with near strangulation. 2. Small bowel, proximal ileum 3 cm viable, but hyperemic 3. Persistent bowel obstruction identified due to internal hernia caused from adhesion from jejunojejunostomy to descending colon epiploica of left upper quadrant lysed 4. Complete resolution of bowel obstruction and internal hernia separate complete show no procedure 5. Fascial defect 5 x 3 cm with bridge closed using #1 V-Loc wound reinforcement mesh 6. Separate early incisional hernia epigastrium 5 x 3 cm also closed using #1 V-Loc 7. Combined defect 10 x 6 cm INDICATIONS: The patient is a 63-year-old female who presents with acute bowel obstruction due to incarcerated incisional hernia. She has past history of prior incarcerated incisional hernia status post repair. Surgical intervention with laparoscopic versus robotic and open techniques were reviewed. Placement of mesh was also reviewed. Benefits and risks were thoroughly described. Informed consent was obtained. DESCRIPTION OF PROCEDURE: The patient was brought into the operating room and laid in supine position. After general induction, the abdomen had been prepped and draped in standard sterile fashion. Ioban draping was also placed. Prior to incision, a timeout protocol was confirmed with surgical team regarding the patient's name including procedures to be performed. The robot was primed prior to the procedure. A field block using local anesthetic was placed along hernia site including the proposed port sites. Initial incision was made with an #11 blade along the left upper quadrant. A 0 degree 5 mm laparoscopic trocar entry was performed and insufflated. Diagnostic laparoscopy incarcerated hernia at the incision at the umbilicus involving the mid transverse colon. Two 8 mm ports were placed along the left lateral abdominal wall. The 5-mm port was exchanged for an 12 mm robotic port. Placements of the ports were 15 cm from the target anatomy and 10 cm apart. The Saiseii Xi robot was previously primed, prepped and draped then docked along the left side of the patient. I then sat at the robot Da Robbin Xi console where working arms of the robot including Bovie cautery connected to robotic scissors, vessel sealer, needle armored car driver, and graspers placed by the assistant professor of biochemistry. Fascial defect of 3 cm of the incision of the umbilicus was identified after cleaning the peritoneal fat of the abdominal wall and reducing an incarcerated sidewall of the mid transverse colon which was completely ischemic and infarcted. A 12 mm port was placed along the right upper quadrant for placement of the mesh and for sutures. The incarcerated contents was reduced as the peritoneal fat was cleaned from the abdominal wall. Next, hemostasis was checked with cautery. The hernia defect was oversewn using #1 Stratafix with fascial imbrication x 3. Next, ventralight ST mesh 11.4 cm was placed with the rough side towards the abdominal wall. 2-0 VLOC sutures were used to fixate the mesh. To address the infarcted sidewall of the transverse colon, a 45 mm Smart technology robotic stapler was fired with 2 blue loads from the left upper quadrant to wedge resect the mid transverse colon at the tinea coli. Hemostasis was checked with cautery. A final endoscopic imaging was obtained. All instruments and pneumoperitoneum were evacuated from the abdominal cavity. Specimen was removed using Endo Catch bag. The da Robbin Xi robot was undocked from the patient. I re-scrubbed into the case for closure of incisions. The fascia of the 12-mm port was probed and less than 8-mm in size. The incisions were reapproximated using 4-0 Monocryl in an interrupted subcuticular fashion. Liquid glue was applied to the skin after cleansing the skin with normal saline and dilute hydrogen peroxide. An abdominal binder was placed. At the end of the procedure, needle, sponge, and instrument count had been verified correct by surgical dental assistant. The patient was taken to the postanesthesia care unit in stable condition.
[2024-02-01 11:38] LABS: Glucose,Whole Blood 135 mg/dL (70-110)
[2024-02-01 12:32] LABS: INR 1.01 sec (0.93-1.11); Prothrombin Time 10.9 sec (9.9-11.9)
--- NOTE | 2024-02-01 13:38 | P.NPCON ---
History of Present Illness - Reason for Consult acute renal failure - History of Present Illness patient is a 63-year-old female with history of nephrolithiasis was admitted to the hospital with complaints of recent abdominal swelling. She is known to have a ventral hernia and was noted to have an incarcerated ventral hernia with bowel obstruction. Patient has history of Tracey-en-Y gastric bypass surgery about 20 years ago. She is status post laparoscopic repair of incarcerated incisional hernia along with laparoscopic lysis of adhesions on 02/01/2024. Patient admits to having had acute kidney injury last year which resolved and therefore she did not need to see a automobile body repair chief. Review of labs show serum creatinine 1.4 on admission and increased to 1.6 today. Previous creatinine was 1.7 in August and decrease to 1.3 on 12/01/2023. CT of the abdomen showed nonobstructive left renal calculus about 7 mm. No obstructive uropathy. Blood pressure has not been low. Maintained on Cozaar and Lasix prior to admission. Patient has received Toradol this admission. Currently maintained on IV fluids . she has been voiding. Review of Systems as per HPI Past Medical History Past Medical History: Blood Disorder, Diabetes Mellitus, Sleep Apnea/CPAP/BIPAP, Thyroid Disorder Additional Past Medical History / Comment(s): neuropathy. hx. of multiple kidney stones. chronic anemia History of Any Multi-Drug Resistant Organisms: None Reported Past Surgical History: Appendectomy, Bariatric Surgery, Cholecystectomy, Hernia Repair, Hysterectomy Additional Past Surgical History / Comment(s): Percutaneous Nephro Lithotomy. [place] teeth extraction under general anesthesia, ureter stent placement. Bowel Resection - Mar 2023 secondary to incarcerated hernia, colonoscopy. RYGB 20 years ago Additional Past Anesthesia/Blood Transfusion Reaction / Comment(s): SHE STATES SHE "CODED" DURING ORAL SURGERY BECAUSE OF AN ANESTHETIC. no supriya during procedures, no blood transfusion Past Psychological History: Depression Smoking Status: Never smoker Past Alcohol Use History: None Reported Past Drug Use History: None Reported - Past Family History Father Family Medical History: AICD/Pacemaker, Deep Vein Thrombosis (DVT), Pulmonary Embolus Mother Family Medical History: Congestive Heart Failure (CHF) Brother(s) Family Medical History: AICD/Pacemaker Medications and Allergies Home Medications Medication Instructions Recorded Confirmed Type Furosemide [Lasix] 20 mg PO MOFR 03/03/15 01/31/24 History Levothyroxine Sodium [Synthroid] 75 mcg PO DAILY 03/03/15 01/31/24 History Losartan [Cozaar] 25 mg PO HS 03/03/15 01/31/24 History Tirzepatide [Mounjaro] 5 mg SQ SA 01/22/23 01/31/24 History Atorvastatin [Lipitor] 10 mg PO HS 03/26/23 01/31/24 History buPROPion XL [Wellbutrin XL] 300 mg PO DAILY 03/26/23 01/31/24 History Cyanocobalamin (Vitamin B-12) 1,000 mg PO DAILY 07/10/23 01/31/24 History [Vitamin B-12] Gabapentin 300 mg PO HS 07/10/23 01/31/24 History Vitamin B Complex 1 cap PO DAILY 07/10/23 01/31/24 History Cholecalciferol [Vitamin D3 (125 125 mcg PO DAILY 01/31/24 01/31/24 History Mcg = 5000 Iu)] Magnesium 250 mg PO HS 01/31/24 01/31/24 History Potassium Citrate [Potassium 20 meq PO BID 01/31/24 01/31/24 History Citrate ER] Allergies Allergy/AdvReac Type Severity Reaction Status Date / Time bupivacaine HCl Allergy Severe Anaphylaxis Verified 01/31/24 11:08 [From Marcaine] lidocaine Allergy Anaphylaxis Verified 01/31/24 11:08 lisinopril Allergy THROAT Verified 01/31/24 11:08 SWELLING Penicillins Allergy Anaphylaxis Verified 01/31/24 11:08 propoxyphene napsylate Allergy Unknown Verified 01/31/24 11:08 [From Darvocet-N 100] morphine AdvReac Nausea & Verified 01/31/24 11:08 Vomiting shellfish derived [Shellfish] AdvReac Anaphylaxis Verified 01/31/24 11:08 topiramate [From Topamax] AdvReac KIDNEY Verified 01/31/24 11:08 STONES Physical Exam Vitals: Vital Signs Temp Pulse Pulse Resp BP BP Pulse Ox 02/01/24 12:15 80 17 126/70 96 02/01/24 12:00 79 15 117/63 97 02/01/24 11:45 74 15 124/67 97 02/01/24 11:31 98.0 F 85 14 116/59 98 02/01/24 07:35 56 L 18 02/01/24 01:47 98.2 F 56 L 18 145/91 94 L 01/31/24 19:28 98 F 98 17 143/90 95 01/31/24 14:00 97.7 F 81 17 154/90 98 Intake and Output 01/31/24 02/01/24 02/01/24 22:59 06:59 14:59 Intake Total 1675 900 Output Total 100 550 20 Balance 1575 -550 880 Intake: IV 900 Intake, IV Titration 1675 Amount Sodium Chloride 0.9% 1, 675 000 ml @ 75 mls/hr IV . [id number] DOUGLAS Rx#:[id number] Sodium Chloride 0.9% 2, 1000 000 ml @ 999 mls/hr IV . Q2H1M ONE Rx#:[id number] Output: Gastric Drainage 100 550 Estimated Blood Loss 20 Other: # Voids 2 2 Weight 88.451 kg patient is awake, comfortable, no acute distress. She has just returned from the OR. Examination of the heart S1 and S2 Examination the lungs bilateral breath sounds are heard Abdomen is dressed Examination lower extremity shows no evidence of edema. Results - Lab Results Most recent lab results Calcium 9.1 mg/dL (8.4-10.2) 02/01/24 04:30 02/01/24 04:30 02/01/24 04:30 Assessment and Plan Assessment: 1. Acute kidney injury, nonoliguric ATN. Currently maintained on IV fluids. I will hold angiotensin receptor blockers. No evidence of obstruction noted on CT of the abdomen. UA shows 1+ protein no blood. 2. Incarcerated mental hernia status post robotic-assisted laparoscopic repair of hernia and lysis of adhesions on 02/01/2024 3. Nephrolithiasis with left renal calculus, 7.0 mm with no obstruction 4. History of Tracey-en-Y gastric bypass surgery about 20 years ago 5. Mild hyperkalemia associated with acute kidney injury Plan: continue with IV fluids. Hold Cozaar Repeat labs in a.m. Check bladder scan and rule out urine retention. Thank you for the consultation. We will continue to follow the patient with you during her hospitalization.
[2024-02-01] MEDS: ACETAMINOPHEN IV (For NPO) 1,000 MG in EMPTY BAG 1 BAG IVPB SCH (14:14)
--- NOTE | 2024-02-01 14:25 | P.PN ---
Progress Note - Text Progress Note Date: 02/01/24 Intraoperative images reviewed with patient. Findings of near strangulated bowel for incarcerated small bowel reviewed. Patient also confirms chronic left upper quadrant abdominal pain consistent with findings of internal hernia now reduced. Recommend liquid diet after 24 hours. May have ice chips and popsicles in the interim. Discharge pending flatus and or bowel movement
--- NOTE | 2024-02-01 16:22 | P.PN ---
Subjective Progress Note Date: 02/01/24 No new complaints. Cr elevated to 1.6 today. Nephrology consulted. Gen: In NAD, non-toxic HEENT: normocephalic, atraumatic, hearing acuity is intant, mucous membranes moist CVS: perfusing all extremities well, no pitting edema, Respiratory: symmetric chest expansion, no accessory muscle use, GI: soft, NTTP, ND, : no suprapubic tenderness, no CVA tenderness MSK/Derm: no rashes, cyanosis Neuro: CN II-XII intact, no motor weakness, Psych: cooperative, euthymic mood, judgment and insight is intact Hospital Course: 63-year-old woman with medical history of hypertension, depression, hypothyr oidism, history of gastric bypass presenting for evaluation of incarcerated ventral hernia with bowel obstruction. Medicine is consulted by primary surgical service for medical management. Upon evaluation, patient was afebrile, 154/90, heart rate 81, 98% on room air. CBC demonstrates leukocytosis to 13.2 which is predominantly neutrophils. Basic metabolic panel shows a BUN of 26, creatinine of 1.46. Liver function test shows mild elevation of AST at 39, otherwise unremarkable. UA shows 1+ protein, 3+ ketones, 1+ bilirubin, large leukocyte esterase, 21 white blood cells. Abdomen/pelvis CT shows small bowel obstruction secondary to ventral wall hernia containing loop of small bowel, as well as indeterminate area of right hepatic lobe seen as a similar finding on 12/27/2022. EKG demonstrates normal sinus rhythm with premature atrial complexes. Chest x-ray demonstrates nasogastric tube placed in the proximal stomach just past the gastro esophageal junction. Assessment/plan: Incarcerated ventral hernia Acute Kidney Injury superimposed on CKD, stage III Hypothyroidism Hypertension Hyperlipidemia Diabetes type 2 Depression Hypothyroidism History of gastric bypass Plan: Resume home Wellbutrin, gabapentin, levothyroxine The combination of Wellbutrin and Reglan increase the risk of neuroleptic malignant syndrome, monitor closely, limit duration of this combination as able Resume home vitamin B complex, B12, vitamin D Hold home Lasix, magnesium, potassium, losartan Resume home Lipitor Hold home tirzepatide Check sugars every 6 hours while NPO Initiate low-dose sliding scale every 6 hours while NPO NG tube management per primary team Objective - Vital Signs Vital signs: Vital Signs Temp 97.6 F 02/01/24 12:35 Pulse 80 02/01/24 15:05 Resp 18 02/01/24 12:35 BP 117/67 02/01/24 15:05 Pulse Ox 97 02/01/24 15:05 FiO2 Intake & Output 01/31/24 02/01/24 02/01/24 18:59 06:59 18:59 Intake Total 1675 900 Output Total 100 550 20 Balance 1575 -550 880 Weight 88.451 kg Intake: IV 900 Intake, IV Titration 1675 Amount Sodium Chloride 0.9% 1, 675 000 ml @ 75 mls/hr IV . [id number] DOUGLAS Rx#:[id number] Sodium Chloride 0.9% 2, 1000 000 ml @ 999 mls/hr IV . Q2H1M ONE Rx#:[id number] Output: Gastric Drainage 100 550 Estimated Blood Loss 20 Other: # Voids 2 2 - Labs CBC & Chem 7: 02/01/24 04:30 02/01/24 04:30 Labs: Abnormal Lab Results - Last 24 Hours (Table) 01/31/24 02/01/24 02/01/24 Range/Units 16:54 04:30 04:30 WBC 15.7 H (3.8-10.6) k/uL RBC 5.86 H (3.80-5.40) m/uL Hct 49.3 H (34.0-46.0) % MCHC 29.8 L (31.0-37.0) g/dL Neutrophils # 13.2 H (1.3-7.7) k/uL Lymphocytes # 0.6 L (1.0-4.8) k/uL Monocytes # 1.6 H (0-1.0) k/uL Potassium 5.2 H (3.5-5.1) mmol/L BUN 52 H (7-17) mg/dL Creatinine 1.60 H (0.52-1.04) mg/dL Glucose 127 H (74-99) mg/dL POC Glucose (mg/dL) 124 H (70-110) mg/dL Total Protein 5.6 L (6.3-8.2) g/dL 02/01/24 02/01/24 Range/Units 06:02 11:36 WBC (3.8-10.6) k/uL RBC (3.80-5.40) m/uL Hct (34.0-46.0) % MCHC (31.0-37.0) g/dL Neutrophils # (1.3-7.7) k/uL Lymphocytes # (1.0-4.8) k/uL Monocytes # (0-1.0) k/uL Potassium (3.5-5.1) mmol/L BUN (7-17) mg/dL Creatinine (0.52-1.04) mg/dL Glucose (74-99) mg/dL POC Glucose (mg/dL) 137 H 135 H (70-110) mg/dL Total Protein (6.3-8.2) g/dL
[2024-02-01 17:04] LABS: Glucose,Whole Blood 105 mg/dL (70-110)
[2024-02-01] MEDS: fentaNYL PCA 500 MCG/50 ML BAG IV SCH (19:43)
[2024-02-01 20:50] LABS: Glucose,Whole Blood 106 mg/dL (70-110)
[2024-02-02 05:54] LABS: Glucose,Whole Blood 93 mg/dL (70-110)
[2024-02-02] MEDS ORDERED: HYDROmorphone 0.5 MG/0.5 ML SYRINGE IVP PRN (07:00)
[2024-02-02 10:43] LABS: Basophils # (A) 0.01 X 10*3/uL (0.00-0.10); Basophils % (A) 0.1 %; Eosinophils # (A) 0.01 X 10*3/uL (0.04-0.35); Eosinophils % (A) 0.1 %; HCT 41.1 % (37.2-46.3); HGB 12.5 g/dL (12.0-15.0); Lymphocytes # (A) 0.77 X 10*3/uL (0.90-5.00); Lymphocytes % (A) 10.1 %; MCH 25.2 pg (27.0-32.0); MCHC 30.4 g/dL (32.0-37.0); MCV 82.7 FL (80.0-97.0); Mean Platelet Volume 12.1 FL (9.5-12.2); Monocytes # (A) 1.04 X 10*3/uL (0.20-1.00); Monocytes % (A) 13.7 %; NRBC Per 100 WBC 0 X 10*3/uL (0.00-0.01); Neutrophils # (A) 5.74 X 10*3/uL (1.80-7.70); Neutrophils % (A) 75.7 %; Platelet Count 325 X 10*3/uL (140-440); RBC 4.97 X 10*6/uL (4.10-5.20); RDW 14.2 % (11.5-14.5); WBC 7.59 X 10*3/uL (4.50-10.00)
[2024-02-02 10:54] LABS: BUN/Creat Ratio 31.63 Ratio (12.00-20.00); Blood Urea Nitrogen 60.1 mg/dL (9.0-27.0); Calcium 8.3 mg/dL (8.7-10.3); Carbon Dioxide 20.9 mmol/L (21.6-31.8); Chloride 109 mmol/L (96-109); Glucose 107 mg/dL (70-110); Potassium 4.2 mmol/L (3.5-5.5); Sodium 141 mmol/L (135-145)
[2024-02-02 12:01] LABS: Glucose,Whole Blood 101 mg/dL (70-110)
--- NOTE | 2024-02-02 12:31 | P.PN ---
Subjective patient is seen for follow-up for acute kidney injury. Maintained on IV fluids. Serum creatinine increased to 1.9 today. No hypotension noted. Patient remains off of losartan. no significant complaints. Patient is walking in the hallway. Objective - Vital Signs Vital signs: Vital Signs Temp 98.7 F 02/02/24 07:48 Pulse 85 02/02/24 07:48 Resp 17 02/02/24 07:48 BP 147/85 02/02/24 07:48 Pulse Ox 93 L 02/02/24 07:48 FiO2 Intake & Output 02/01/24 02/02/24 02/02/24 18:59 06:59 18:59 Intake Total 1450 Output Total 20 300 Balance 1430 -300 Weight 88.451 kg Intake: IV 900 Intake, IV Titration 550 Amount ACETAMINOPHEN IV (For NPO 200 ) 1,000 mg In Empty Bag 1 bag @ 400 mls/hr IVPB Q6HR DOUGLAS Rx#:[id number] Sodium Chloride 0.9% 1, 350 000 ml @ 75 mls/hr IV . [id number] DOUGLAS Rx#:[id number] Output: Urine 300 Estimated Blood Loss 20 Other: Voiding Method Toilet # Voids 1 2 - Exam patient is awake, comfortable, alert oriented 3. 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 No edema noted. - Labs CBC & Chem 7: 02/02/24 06:10 02/02/24 06:10 Labs: Abnormal Lab Results - Last 24 Hours (Table) 02/02/24 02/02/24 Range/Units 06:10 06:10 MCH 25.2 L (27.0-32.0) pg MCHC 30.4 L (32.0-37.0) g/dL Lymphocytes # 0.77 L (0.90-5.00) X 10*3/uL Monocytes # 1.04 H (0.20-1.00) X 10*3/uL Eosinophils # 0.01 L (0.04-0.35) X 10*3/uL Carbon Dioxide 20.9 L (21.6-31.8) mmol/L BUN 60.1 H (9.0-27.0) mg/dL Creatinine 1.9 H (0.6-1.5) mg/dL Est GFR (CKD-EPI) 30 L (>=60) BUN/Creatinine Ratio 31.63 H (12.00-20.00) Ratio Calcium 8.3 L (8.7-10.3) mg/dL Assessment and Plan Assessment: 1. Acute kidney injury, nonoliguric ATN. Currently maintained on IV fluids. I will hold angiotensin receptor blockers. No evidence of obstruction noted on CT of the abdomen. UA shows 1+ protein no blood. check post void bladder scan and rule out urine retention. 2. Incarcerated mental hernia status post robotic-assisted laparoscopic repair of hernia and lysis of adhesions on 02/01/2024 3. Nephrolithiasis with left renal calculus, 7.0 mm with no obstruction 4. History of Tracey-en-Y gastric bypass surgery about 20 years ago 5. Mild hyperkalemia associated with acute kidney injury Plan: continue with IV fluids. continue to hold angiotensin receptor blockers. check ultrasound of the kidneys Repeat labs in a.m.
--- NOTE | 2024-02-02 13:33 | P.PN ---
Subjective Progress Note Date: 02/02/24 No new complaints. Cr elevated to 1.9 today. Patient denies abdominal pain, noted to be ambulating in the hallways without any issues. As of this morning, still has not passed flatus and diet has not been advanced. Gen: In NAD, non-toxic HEENT: normocephalic, atraumatic, hearing acuity is intant, mucous membranes moist CVS: perfusing all extremities well, no pitting edema, Respiratory: symmetric chest expansion, no accessory muscle use, GI: soft, NTTP, ND, : no suprapubic tenderness, no CVA tenderness MSK/Derm: no rashes, cyanosis Neuro: CN II-XII intact, no motor weakness, Psych: cooperative, euthymic mood, judgment and insight is intact Hospital Course: 63-year-old woman with medical history of hypertension, depression, hypothyroidism, history of gastric bypass presenting for evaluation of incarcerated ventral hernia with bowel obstruction. Medicine is consulted by primary surgical service for medical management. Upon evaluation, patient was afebrile, 154/90, heart rate 81, 98% on room air. CBC demonstrates leukocytosis to 13.2 which is predominantly neutrophils. Basic metabolic panel shows a BUN of 26, creatinine of 1.46. Liver function test shows mild elevation of AST at 39, otherwise unremarkable. UA shows 1+ protein, 3+ ketones, 1+ bilirubin, large leukocyte esterase, 21 white blood cells. Abdomen/pelvis CT shows small bowel obstruction secondary to ventral wall hernia containing loop of small bowel, as well as indeterminate area of right hepatic lobe seen as a similar finding on 12/27/2022. EKG demonstrates normal sinus rhythm with premature atrial complexes. Chest x-ray demonstrates nasogastric tube placed in the proximal stomach just past the gastro esophageal junction. Assessment/plan: Incarcerated ventral hernia Acute Kidney Injury superimposed on CKD, stage III Hypothyroidism Hypertension Hyperlipidemia Diabetes type 2 Depression Hypothyroidism History of gastric bypass Plan: Resume home Wellbutrin, gabapentin, levothyroxine The combination of Wellbutrin and Reglan increase the risk of neuroleptic malignant syndrome, monitor closely, limit duration of this combination as able Resume home vitamin B complex, B12, vitamin D Hold home Lasix, magnesium, potassium, losartan Resume home Lipitor Hold home tirzepatide Check sugars every 6 hours while NPO Initiate low-dose sliding scale every 6 hours while NPO NG tube management per primary team Objective - Vital Signs Vital signs: Vital Signs Temp 98.7 F 02/02/24 07:48 Pulse 85 02/02/24 07:48 Resp 17 02/02/24 07:48 BP 147/85 02/02/24 07:48 Pulse Ox 93 L 02/02/24 07:48 FiO2 Intake & Output 02/01/24 02/02/24 02/02/24 18:59 06:59 18:59 Intake Total 1450 Output Total 20 300 Balance 1430 -300 Weight 88.451 kg Intake: IV 900 Intake, IV Titration 550 Amount ACETAMINOPHEN IV (For NPO 200 ) 1,000 mg In Empty Bag 1 bag @ 400 mls/hr IVPB Q6HR DOUGLAS Rx#:[id number] Sodium Chloride 0.9% 1, 350 000 ml @ 75 mls/hr IV . [id number] DOUGLAS Rx#:[id number] Output: Urine 300 Estimated Blood Loss 20 Other: Voiding Method Toilet # Voids 1 2 - Labs CBC & Chem 7: 02/02/24 06:10 02/02/24 06:10 Labs: Abnormal Lab Results - Last 24 Hours (Table) 02/02/24 02/02/24 Range/Units 06:10 06:10 MCH 25.2 L (27.0-32.0) pg MCHC 30.4 L (32.0-37.0) g/dL Lymphocytes # 0.77 L (0.90-5.00) X 10*3/uL Monocytes # 1.04 H (0.20-1.00) X 10*3/uL Eosinophils # 0.01 L (0.04-0.35) X 10*3/uL Carbon Dioxide 20.9 L (21.6-31.8) mmol/L BUN 60.1 H (9.0-27.0) mg/dL Creatinine 1.9 H (0.6-1.5) mg/dL Est GFR (CKD-EPI) 30 L (>=60) BUN/Creatinine Ratio 31.63 H (12.00-20.00) Ratio Calcium 8.3 L (8.7-10.3) mg/dL
--- NOTE | 2024-02-02 14:07 | US ---
EXAMINATION TYPE: US kidneys/renal and bladder DATE OF EXAM: 02/02/2024 COMPARISON: CT 01/30/24 CLINICAL INDICATION: Female, 63 years old with history of urmila; URMILA EXAM MEASUREMENTS: Right Kidney: 10.3x4.5x4.4 cm Left Kidney: obscured by bowel gas Right Kidney: 0.3cm echogenic foci noted mid-pole may be a nonobstructing renal stone Left Kidney: Obscured by overlying bowel gas Bladder: mostly obscured by overlying bowel gas Bilateral Jets seen: unable to assess due to flash artifact There is no evidence for hydronephrosis at this point in time. No masses are identified. The urina ry bladder is anechoic. exam limited by bowel gas and body habitus IMPRESSION: 1. Left kidney is not identified. Exam limited due to bowel gas body habitus. 2. Nonobstructing right stone
--- NOTE | 2024-02-02 14:09 | P.PN ---
Subjective Progress Note Date: 02/02/24 CHIEF COMPLAINT: Abdominal pain HISTORY OF PRESENT ILLNESS: The patient is a 63-year-old female status post lysis of adhesions and repair of an incarcerated incisional hernia with bowel obstruction. No passage of flatus. She does report appropriate soreness. She does feel better since her surgery. REVIEW OF ORGAN SYSTEMS: CONSTITUTIONAL: No fevers or chills. Intentional weight loss and gastric b ypass. CARDIOVASCULAR: Hypertensive heart disease. Has congestive heart failure. Recent cardiac risk assessment February 2023. GASTROINTESTINAL: History of gastric bypass with prior small bowel resection due to bowel obstruction from prior incisional hernia. GENITOURINARY: History of kidney stones NEUROLOGICAL: Has neuropathy. HEME/LYMPHATIC: Has chronic anemia. PHYSICAL EXAM: VITALS: Reviewed VITAL SIGNS: Reviewed CONSTITUTIONAL: Well developed and in no acute distress. EYES: Conjuctivae without sclera icterus. Extraocular movements grossly intact. HEAD, EARS, NOSE, THROAT: Moist buccal mucosa. Head is atraumatic, normocephalic. Hears conversational speech. No nasal drainage. Nasogastric tube with gastric contents RESPIRATORY: Non-labored respirations and equal bilateral excursions. CARDIOVASCULAR: Palpable 2+ radial pulses. ABDOMEN: Incision clean dry and intact. No peritonitis. MUSCULOSKELETAL: No gross deformity of the lower extremities noted. No clubbing. No cyanosis. SKIN: Good skin turgor. Well perfused. NEUROLOGIC: Cranial nerves II through XII grossly intact. No focal or lateralizing signs. PSYCH: Appropriate affect. Alert and oriented to person, place and time. LABS: Reviewed. WBC elevated 13.2-15.7, leukocytosis today, WBC normal. Creatinine elevated 1.4-1.6, today 1.9. ASSESSMENT: 1. Abdominal pain due to incarcerated ventral hernia with bowel obstruction 2. History of gastric bypass 3. Hypertensive heart disease with congestive heart failure 4. Hypothyroidism 5. Depressive disorder 6. Dehydration 7. Acute kidney injury secondary to dehydration PLAN: 1. Nephrology is on consult due to pre-existing kidney disorder. Creatinine is worse today. Discharge pending clearance from consultants 2. Low fiber diet. 3. Disposition 24 hours pending renal impairment resolution Objective - Vital Signs Vital signs: Vital Signs Temp 98.7 F 02/02/24 07:48 Pulse 85 02/02/24 07:48 Resp 17 07/08/24 07:48 BP 147/85 02/02/24 07:48 Pulse Ox 93 L 02/02/24 07:48 FiO2 Intake & Output 02/01/24 02/02/24 02/02/24 18:59 06:59 18:59 Intake Total 1450 Output Total 20 300 Balance 1430 -300 Weight 88.451 kg Intake: IV 900 Intake, IV Titration 550 Amount ACETAMINOPHEN IV (For NPO 200 ) 1,000 mg In Empty Bag 1 bag @ 400 mls/hr IVPB Q6HR DOUGLAS Rx#:[id number] Sodium Chloride 0.9% 1, 350 000 ml @ 75 mls/hr IV . [id number] DOUGLAS Rx#:[id number] Output: Urine 300 Estimated Blood Loss 20 Other: Voiding Method Toilet # Voids 1 2 - Labs CBC & Chem 7: 02/02/24 06:10 02/02/24 06:10 Labs: Abnormal Lab Results - Last 24 Hours (Table) 02/02/24 02/02/24 Range/Units 06:10 06:10 MCH 25.2 L (27.0-32.0) pg MCHC 30.4 L (32.0-37.0) g/dL Lymphocytes # 0.77 L (0.90-5.00) X 10*3/uL Monocytes # 1.04 H (0.20-1.00) X 10*3/uL Eosinophils # 0.01 L (0.04-0.35) X 10*3/uL Carbon Dioxide 20.9 L (21.6-31.8) mmol/L BUN 60.1 H (9.0-27.0) mg/dL Creatinine 1.9 H (0.6-1.5) mg/dL Est GFR (CKD-EPI) 30 L (>=60) BUN/Creatinine Ratio 31.63 H (12.00-20.00) Ratio Calcium 8.3 L (8.7-10.3) mg/dL
[2024-02-02 18:34] LABS: Appearance,Urine Clear (Clear); Bilirubin,Urine Negative (Negative); Blood,Urine Negative (Negative); Color,Urine Colorless; Glucose,Urine (UA) Negative (Negative); Ketones,Urine Negative (Negative); Leukocyte Esterase,Urine Trace (Negative); Nitrite,Urine Negative (Negative); Protein,Urine Trace (Negative); RBC,Urine <1 /hpf (0-5); Specific Gravity,Urine 1.025 (1.001-1.035); Squamous Epithelial Cell,Urine <1 /hpf (0-4); Urobilinogen,Urine <2.0 mg/dL (<2.0); WBC,Urine 4 /hpf (0-5)
[2024-02-03 09:13] LABS: BUN/Creat Ratio 26.58 Ratio (12.00-20.00); Blood Urea Nitrogen 31.9 mg/dL (9.0-27.0); Calcium 7.6 mg/dL (8.7-10.3); Carbon Dioxide 21.5 mmol/L (21.6-31.8); Chloride 108 mmol/L (96-109); Glucose 93 mg/dL (70-110); Potassium 3.6 mmol/L (3.5-5.5); Sodium 140 mmol/L (135-145)
[2024-02-03 11:11] LABS: Glucose,Whole Blood 122 mg/dL (70-110)
--- NOTE | 2024-02-03 11:33 | P.PN ---
Subjective Progress Note Date: 02/03/24 No new complaints. Cr improved to 1.2. Pt is medically cleared for discharge. May resume losartan, tirzepatide on discharge. Discontinue lasix, magnesium, and potassium. Gen: In NAD, non-toxic HEENT: normocephalic, atraumatic, hearing acuity is intant, mucous membranes moist CVS: perfusing all extremities well, no pitting edema, Respiratory: symmetric chest expansion, no accessory muscle use, GI: soft, NTTP, ND, : no suprapubic tenderness, no CVA tenderness MSK/Derm: no rashes, cyanosis Neuro: CN II-XII intact, no motor weakness, Psych: cooperative, euthymic mood, judgment and insight is intact Hospital Course: 63-year-old woman with medical history of hypertension, depression, h ypothyroidism, history of gastric bypass presenting for evaluation of incarcerated ventral hernia with bowel obstruction. Medicine is consulted by primary surgical service for medical management. Upon evaluation, patient was afebrile, 154/90, heart rate 81, 98% on room air. CBC demonstrates leukocytosis to 13.2 which is predominantly neutrophils. Basic metabolic panel shows a BUN of 26, creatinine of 1.46. Liver function test shows mild elevation of AST at 39, otherwise unremarkable. UA shows 1+ protein, 3+ ketones, 1+ bilirubin, large leukocyte esterase, 21 white blood cells. Abdomen/pelvis CT shows small bowel obstruction secondary to ventral wall hernia containing loop of small bow el, as well as indeterminate area of right hepatic lobe seen as a similar finding on 12/27/2022. EKG demonstrates normal sinus rhythm with premature atrial complexes. Chest x-ray demonstrates nasogastric tube placed in the proximal stomach just past the gastro esophageal junction. Assessment/plan: Incarcerated ventral hernia Acute Kidney Injury superimposed on CKD, stage III Hypothyroidism Hypertension Hyperlipidemia Diabetes type 2 Depression Hypothyroidism History of gastric bypass Plan: Resume home Wellbutrin, gabapentin, levothyroxine The combination of Wellbutrin and Reglan increase the risk of neuroleptic malignant syndrome, monitor closely, limit duration of this combination as able Resume home vitamin B complex, B12, vitamin D Hold home Lasix, magnesium, potassium, losartan Resume home Lipitor Hold home tirzepatide Check sugars ACHS Initiate low-dose sliding scale ACHS NG tube management per primary team Objective - Vital Signs Vital signs: Vital Signs Temp 98.7 F 02/03/24 08:00 Pulse 84 02/03/24 08:00 Resp 16 02/03/24 08:00 BP 132/78 02/03/24 08:00 Pulse Ox 96 02/03/24 08:00 FiO2 Intake & Output 02/02/24 02/03/24 02/03/24 18:59 06:59 18:59 Intake Total 400 Balance 400 Intake: Intake, IV Titration 400 Amount Sodium Chloride 0.9% 50 400 ml @ 0 mls/hr IV .STK-MED ONE with ceFAZolin 2,000 mg Rx#:[id number] Other: Voiding Method Toilet # Voids 3 - Labs CBC & Chem 7: 02/02/24 06:10 02/03/24 05:15 Labs: Abnormal Lab Results - Last 24 Hours (Table) 02/02/24 02/02/24 02/03/24 Range/Units 15:00 15:00 05:15 Carbon Dioxide 21.5 L (21.6-31.8) mmol/L BUN 31.9 H (9.0-27.0) mg/dL Est GFR (CKD-EPI) 52 L (>=60) BUN/Creatinine Ratio 26.58 H (12.00-20.00) Ratio POC Glucose (mg/dL) (70-110) mg/dL Calcium 7.6 L (8.7-10.3) mg/dL Urine Protein Trace H (Negative) Ur Leukocyte Esterase Trace H (Negative) Ur Random Sodium <20 L (40-220) mmol/L 02/03/24 Range/Units 11:09 Carbon Dioxide (21.6-31.8) mmol/L BUN (9.0-27.0) mg/dL Est GFR (CKD-EPI) (>=60) BUN/Creatinine Ratio (12.00-20.00) Ratio POC Glucose (mg/dL) 122 H (70-110) mg/dL Calcium (8.7-10.3) mg/dL Urine Protein (Negative) Ur Leukocyte Esterase (Negative) Ur Random Sodium (40-220) mmol/L
[2024-02-03] MEDS: LACTATED RINGERS 1,000 ML IV ONE (13:35)
[2024-02-03 16:31] LABS: Glucose,Whole Blood 87 mg/dL (70-110)
--- NOTE | 2024-02-03 17:46 | P.PN ---
Subjective patient is seen for follow-up for acute kidney injury. Maintained on IV fluids. Serum creatinine has decreased to 1.2 today. No hypotension noted. Patient remains off of losartan. no significant complaints. Objective - Vital Signs Vital signs: Vital Signs Temp 98.2 F 02/03/24 13:53 Pulse 82 02/03/24 13:53 Resp 16 02/03/24 13:53 BP 126/75 02/03/24 13:53 Pulse Ox 96 02/03/24 08:00 FiO2 Intake & Output 02/02/24 02/03/24 02/03/24 18:59 06:59 18:59 Intake Total 400 120 Balance 400 120 Intake: Intake, IV Titration 400 Amount Sodium Chloride 0.9% 50 400 ml @ 0 mls/hr IV .STK-MED ONE with ceFAZolin 2,000 mg Rx#:[id number] Oral 120 Other: Voiding Method Toilet # Voids 3 - Exam patient is awake, comfortable, alert oriented 3. 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 No edema noted. - Labs CBC & Chem 7: 02/02/24 06:10 02/03/24 05:15 Labs: Abnormal Lab Results - Last 24 Hours (Table) 02/02/24 02/02/24 02/03/24 Range/Units 15:00 15:00 05:15 Carbon Dioxide 21.5 L (21.6-31.8) mmol/L BUN 31.9 H (9.0-27.0) mg/dL Est GFR (CKD-EPI) 52 L (>=60) BUN/Creatinine Ratio 26.58 H (12.00-20.00) Ratio POC Glucose (mg/dL) (70-110) mg/dL Calcium 7.6 L (8.7-10.3) mg/dL Urine Protein Trace H (Negative) Ur Leukocyte Esterase Trace H (Negative) Ur Random Sodium <20 L (40-220) mmol/L 02/03/24 Range/Units 11:09 Carbon Dioxide (21.6-31.8) mmol/L BUN (9.0-27.0) mg/dL Est GFR (CKD-EPI) (>=60) BUN/Creatinine Ratio (12.00-20.00) Ratio POC Glucose (mg/dL) 122 H (70-110) mg/dL Calcium (8.7-10.3) mg/dL Urine Protein (Negative) Ur Leukocyte Esterase (Negative) Ur Random Sodium (40-220) mmol/L Assessment and Plan Assessment: 1. Acute kidney injury, nonoliguric ATN. Currently maintained on IV fluids. Losartan on hold. No evidence of obstruction noted on CT of the abdomen. UA shows 1+ protein no blood. . 2. Incarcerated mental hernia status post robotic-assisted laparoscopic repair of hernia and lysis of adhesions on 02/01/2024 3. Nephrolithiasis with left renal calculus, 7.0 mm with no obstruction 4. History of Tracey-en-Y gastric bypass surgery about 20 years ago 5. Mild hyperkalemia associated with acute kidney injury, improved. Plan: continue with IV fluids. continue to hold angiotensin receptor blockers. Repeat labs in a.m.
[2024-02-03 20:50] LABS: Glucose,Whole Blood 101 mg/dL (70-110)
[2024-02-03] MEDS: ACETAMINOPHEN TAB 500 MG TAB PO PRN (22:35)
[2024-02-04 06:25] LABS: Glucose,Whole Blood 91 mg/dL (70-110)
[2024-02-04 08:24] VITALS: BP 137/82; PULSE 81; RESP 17; TEMP 99
--- NOTE | 2024-02-04 10:34 | P.PN ---
Subjective Progress Note Date: 02/04/24 CHIEF COMPLAINT: Abdominal pain HISTORY OF PRESENT ILLNESS: The patient is a 63-year-old female status post lysis of adhesions and repair of an incarcerated incisional hernia with bowel obstruction. She is passing flatus. She reports her pain is well-controlled. She is tolerating diet. Renal function is improving. REVIEW OF ORGAN SYSTEMS: CONSTITUTIONAL: No fevers or chills. Intentional weight loss and gastric bypass. CARDIOVASCULAR: Hypertensive heart disease. Has congestive heart failure. Recent cardiac risk assessment February 2023. GASTROINTESTINAL: History of gastric bypass with prior small bowel resection due to bowel obstruction from prior incisional hernia. GENITOURINARY: History of kidney stones NEUROLOGICAL: Has neuropathy. HEME/LYMPHATIC: Has chronic anemia. PHYSICAL EXAM: VITALS: Reviewed VITAL SIGNS: Reviewed CONSTITUTIONAL: Well developed and in no acute distress. EYES: Conjuctivae without sclera icterus. Extraocular movements grossly intact. HEAD, EARS, NOSE, THROAT: Moist buccal mucosa. Head is atraumatic, normocephalic. Hears conversational speech. No nasal drainage. Nasogastric tube with gastric contents RESPIRATORY: Non-labored respirations and equal bilateral excursions. CARDIOVASCULAR: Palpable 2+ radial pulses. ABDOMEN: Incision clean dry and intact. No peritonitis. MUSCULOSKELETAL: No gross deformity of the lower extremities noted. No club chichi. No cyanosis. SKIN: Good skin turgor. Well perfused. NEUROLOGIC: Cranial nerves II through XII grossly intact. No focal or lateralizing signs. PSYCH: Appropriate affect. Alert and oriented to person, place and time. LABS: Reviewed. Creatinine down to normal 1.2 from 1.9. CBC normal. ASSESSMENT: 1. Abdominal pain due to incarcerated ventral hernia with bowel obstruction 2. History of gastric bypass 3. Hypertensive heart disease with congestive heart failure 4. Hypothyroidism 5. Depressive disorder 6. Dehydration 7. Acute kidney injury secondary to dehydration PLAN: 1. Overall, patient is stable. Pain is improved and tolerating diet for discharge. 2. Follow-up bariatric center in 1 week Objective - Vital Signs Vital signs: Vital Signs Temp 99.0 F 02/04/24 07:37 Pulse 81 02/04/24 07:37 Resp 17 02/04/24 07:37 BP 137/82 02/04/24 07:37 Pulse Ox 94 L 02/04/24 07:37 FiO2 Intake & Output 02/03/24 02/04/24 02/04/24 18:59 06:59 18:59 Intake Total 420 Balance 420 Intake: Oral 420 Other: Voiding Method Toilet # Voids 4 1 # Bowel Movements 1 - Labs CBC & Chem 7: 02/02/24 06:10 02/03/24 05:15 Labs: Abnormal Lab Results - Last 24 Hours (Table) 02/03/24 Range/Units 11:09 POC Glucose (mg/dL) 122 H (70-110) mg/dL
[2024-02-04 12:09] LABS: Glucose,Whole Blood 86 mg/dL (70-110)
--- NOTE | 2024-02-04 13:22 | P.PN ---
Subjective patient is seen for follow-up for acute kidney injury. Maintained on IV fluids. Serum creatinine has decreased to 1.2 . plans for discharge today. no significant complaints. Objective - Vital Signs Vital signs: Vital Signs Temp 99.0 F 02/04/24 07:37 Pulse 81 02/04/24 07:37 Resp 17 02/04/24 07:37 BP 137/82 02/04/24 07:37 Pulse Ox 94 L 02/04/24 07:37 FiO2 Intake & Output 02/03/24 02/04/24 02/04/24 18:59 06:59 18:59 Intake Total 420 Balance 420 Intake: Oral 420 Other: Voiding Method Toilet # Voids 4 1 # Bowel Movements 1 - Exam patient is awake, comfortable, alert oriented 3. 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 Acute kidney injury, nonoliguric ATN. Currently maintained on IV fluids. Losartan on hold. No evidence of obstruction noted on CT of the abdomen. UA shows 1+ protein no blood. . 2. Incarcerated mental hernia status post robotic-assisted laparoscopic repair of hernia and lysis of adhesions on 02/01/2024 3. Nephrolithiasis with left renal calculus, 7.0 mm with no obstruction 4. History of Tracey-en-Y gastric bypass surgery about 20 years ago 5. Mild hyperkalemia associated with acute kidney injury, improved. Plan: can resume angiotensin receptor blockers as outpatient based on blood pressure. Advised to maintain low salt intake to help prevent increased calcium secretion in the tubules to prevent calcium stones. can resume potassium citrate post discharge.
== END 2024-02-04 12:35 | disposition home or self-care (01) | DRG 335 ==
LOC: EC 19:42 → SUPCPDRO 19:42 → 4SSUR 23:01
PROVIDERS: ADMIT Surgery Plastic and Reconstructive Surgery; ATTEND Surgery Plastic and Reconstructive Surgery
PROC: 0WUF4JZ Supplement Abdominal Wall with Synthetic Substitute, Percutaneous Endoscopic Approach (ICD-10-PCS; principal; 2024-02-01 09:00)
PROC: 0DNW4ZZ Release Peritoneum, Percutaneous Endoscopic Approach (ICD-10-PCS; principal; 2024-02-01 09:00)
PROC: 8E0W4CZ Robotic Assisted Procedure of Trunk Region, Percutaneous Endoscopic Approach (ICD-10-PCS; principal; 2024-02-01 09:00)
DX: K43.0 Incisional hernia with obstruction, without gangrene (principal); N17.0 Acute kidney failure with tubular necrosis; I13.0 Hypertensive heart and chronic kidney disease with heart failure and stage 1 through stage 4 chronic kidney disease, or unspecified chronic kidney disease; N18.4 Chronic kidney disease, stage 4 (severe); K66.0 Peritoneal adhesions (postprocedural) (postinfection); N18.30 Chronic kidney disease, stage 3 unspecified; N20.0 Calculus of kidney; I49.1 Atrial premature depolarization; I50.9 Heart failure, unspecified; D72.829 Elevated white blood cell count, unspecified; E03.9 Hypothyroidism, unspecified; E11.22 Type 2 diabetes mellitus with diabetic chronic kidney disease; E78.5 Hyperlipidemia, unspecified; E86.0 Dehydration; E87.5 Hyperkalemia; F32.A Depression, unspecified; Z86.74 Personal history of sudden cardiac arrest; Z79.890 Hormone replacement therapy; Z79.899 Other long term (current) drug therapy; Z87.442 Personal history of urinary calculi; Z98.84 Bariatric surgery status; Z90.49 Acquired absence of other specified parts of digestive tract; Z88.4 Allergy status to anesthetic agent; Z88.0 Allergy status to penicillin; Z88.8 Allergy status to other drugs, medicaments and biological substances
CPT/HCPCS: 36415; 74176; 76770; 80048; 80053; 81001; 82150; 82570; 83605; 83690; 84300; 85025; 85610; 88302; 93005; 96361; 96374; 99285